=== PATIENT | male | born 1970 | race Caucasian/White ===

== ENCOUNTER 2024-05-03 14:01 | Inpatient (IN) | payer OTHER, SELFPAY ==
[2024-05-03] VITALS (49 sets, daily range): BP systolic 110–202; BP diastolic 60–123; PULSE 75–80; BMI 40.9
--- NOTE | 2024-05-03 12:37 | ED.CVA ---
History of Present Illness
General
Chief Complaint: CVA/TIA Symptoms
Source: patient
Time Seen by Provider: 05/03/24 12:34
Onset of Stroke Symptoms
Onset of symptoms known: Yes
Date of onset of symptoms: 05/03/24
History of Present Illness
History of Present Illness:
This patient is a 54-year-old male who went to bed last night feeling his usual self. He awoke but stayed in bed at 6 AM and felt perfectly well. He then awoke at 10 AM, and noted that his left side felt 'funny'. He got up out of bed and noted
weakness on his left side. Medics were called. Patient noted to have a left facial droop associated with left-sided weakness. He is also hypertensive. Patient has a history of hypertension and A-fib, and is on a DOAC. He was traveling and
states that he forgot his medications and therefore missed a dose of his DOAC both yesterday and today. He denies numbness, chest pain, shortness of breath, severe headache, visual changes, neck pain, or other complaints.
Past History
Past History
ED Past Medical History: Arrthythmia (Paroxysmal atrial fibrillation), HTN and Other (Sleep apnea)
ED Past Surgical History: Orthopedic (Reconstructive surgery due to trauma to his right lower extremity)
Social History
Tobacco: Smoker
Alcohol: Daily
Drug: None
Personal:
Living: with family
Family History
Family History: Hypertension
Phy Exam
Physical Exam
Physical Exam:
GENERAL: Alert , in no apparent distress
EYE: pupils equal and reactive, no photophobia
NECK: Supple, no significant adenopathy.
ENT: o/p clr, mmm.
CARDIAC: Regular rate and rhythm .
LUNGS: Clear breath sounds bilaterally, no acute respiratory distress, no wheezes/rales/rhonchi
ABDOMEN: Soft, without focal tenderness, no r/g, no cvat
NEUROLOGICAL: Alert and oriented, speech slurred, left facial droop, left upper and lower extremity weakness, see NIH score
SKIN: Warm and dry, skin intact.
MUSCULOSKELETAL: No edema, well perfused.
PSYCH: Normal and appropriate interaction.
Scores
NIH Stroke Score
Level of Consciousness: 0 - Alert
LOC Questions: 0-Answers both correctly
LOC Commands: 0-Performs both correctly
Best Horizontal Gaze: 0-Normal
Visual Browne: 0=Normal, no visual loss
Facial Palsy: 2=Partial paralysis
Motor - Right Arm: 0=No drift 10 seconds
Motor - Left Arm: 2=Partial vs. gravity
Motor - Right Le-No drift 5 seconds
Motor - Left Le-Drift < 5 seconds
Limb Ataxia: 0-Absent
Sensation: 0-Normal
Best Language: 0-No aphasia
Dysarthria: 2-Severe slurring
Extinction and Inattention: 0-No abnormality
Total Score:: 7
Course
Orders/Labs/Results
Orders:
Orders
05/03/24 12:31
CT Head W/o Cont STROKE ALERT Urgent
Comment:
Reason For Exam: stroke symptoms
05/03/24 12:32
Electrocardiogram (*1) Urgent
Reason for Study: Other
Other Reason for Exam: Possible Stroke
Bedside Glucose- Treatment ONCE
Cardiac Monitoring- Treatment ONCE
EKG- Treatment ONCE
IV Insert/Care/Rem.- Treatment PRN
Vital Signs As Directed
Frequency: Other
Weight As Directed
Frequency: Once
Comment: ZERO STRETCHER SCALE FOR ACCURATE WEIGHT
O2 Therapy [RESP] Urgent
Titrate/Wean O2 to maintain O2 sat greater than (%): 93
Special Instructions: MAINTAIN CONTINUOUS O2 SATS > OR = 93%
05/03/24 12:33
Complete Blood Count/With Diff Urgent
Comprehensive Metabolic Panel Urgent
PTT Urgent
Prothrombin Time Urgent
Troponin I Urgent
05/03/24 12:46
Labetalol HCl [Trandate] 10 mg IV NOW STA
05/03/24 12:51
CT Head & Neck Angio W/wo IV Routine
Comment:
Reason For Exam: stenosis
05/03/24 12:52
Add On- LAB Routine
Tests Added?: folate, ferritin, TSH reflex, B12, lipid panel, hbA1c
Prothrombin Complex(Pcc),Human [Kcentra] 2,580 unit Empty Viaflex Container 100 ml [Viaflex Empty Container] 100 ml IV NOW
Does patient have a dx of serious acute active bleeding?: Yes
Does patient have prior history of HIT?: No
Urgent surgery/invasive procedure planned in next 6 hours?: No
05/03/24 12:53
Nicardipine 40 mg/200 ml [Cardene] 40 mg in 200 ml IV NOW
Initial dose in mg/hr, then titrate:: 5
Titrate to keep:: Other
Titrate to keep other:: sbp 100-140
Titrate by mg/hr:: 2.5 mg/hr
Frequency of titrations (minutes):: 5-15 minutes
Maximum dose in mg/hr:: 15
Begin to taper infusion when:: Remained at goal for 2hrs
Taper by mg/hr:: 2.5 mg/hr
Frequency of taper (minutes) if patient maintains goal:: 15-30 minutes
Taper to off?: Yes
If infusion off & no longer maintaining goal:: Contact Provider
Elevate HOB [Head of Bed-Restrictions] As Directed
Elevation Level: 30 degress
Keep head of bed flat: No
Comment: elevate HOB >30 degrees at all times
05/03/24 12:54
Add On- LAB Routine
Comments:: Please add to today's labs or draw as routine
Tests Added?: ESR, EtOH, UDS
05/03/24 13:04
NIH Stroke Scale As Directed
Directions: Per protocol
Comment: Please until order to stop
Swallow Screening CVA/TIA ONLY As Directed
If patient FAILS swallow screening:: NPO
If patient PASSES swallow screening, diet:: Cholesterol Lowering
05/03/24 13:37
NEUROLOGY CONSULT Routine
Consulting Provider: David Evangelista
Was physician already notified: Yes
Neurosurgery Consult Routine
Consulting Provider: Forrest Canchola
Was physician already notified: Yes
Urine Drug Abuse Screen Routine
05/03/24 13:39
[place] Setter Consult Routine
Consulting Provider: Dominik Man
Was physician already notified: Yes
05/03/24 13:41
Admit/Transfer Patient As Directed
Co-Sign Provider:
Level of Care: Inpatient admission
Assign to:: ICU
Physician / Group: Lilly
Diagnosis: ICH, Hypertensive Emergency
Reason for Hospitalization: ICH, Cardene drip
Expected length of stay greater than two midnights?: Yes
ELOS- Estimated Length of Stay in days: 3
I certify the patient meets the requirements for IP care: Yes
05/03/24 13:43
PRN Pain Medication Management As Directed
May give lesser potent ordered pain med per pt: Yes
preference::
Protocol:: Medication orders for pain may be administered in a
manner that supports deferring to patient preference
when the pt is:
- Requesting an ordered lesser potent pain medication.
Least to most potent pain medications are defined
as: acetaminophen < NSAID < tramadol < opioids
(morphine, oxycodone, hydromorphone).
- Requesting a lesser dose of the same medication IF
ORDERED.
- Requesting a less intrusive route of administration
if both routes are prescribed by the provider (PO <
IV).
05/03/24 13:45
Code Status As Directed
Resuscitation Status: Full Code
Abnormal Lab Results
05/03/24 05/03/24
12:33 12:43
Absolute Monos (auto) 0.7 H 10^3/uL
(0.1-0.6)
Lymphocytes % 19.9 L %
(20.5-51.1)
Glucose 110 H mg/dl
(70-99)
Troponin I 0.042 H* ng/ml
POC Glucose 113 H mg/dl
(70-99)
05/03/24 12:33
05/03/24 12:33
Vital Signs
Initial and Last Documented VS:
Initial Vital Signs
Temp Pulse Resp BP Pulse Ox
98.3 F 79 20 197/108 95
05/03/24 12:38 05/03/24 12:38 05/03/24 12:38 05/03/24 12:38 05/03/24 12:38
Last Documented Vital Signs
Temp Pulse Resp BP Pulse Ox
98.3 F 76 25 194/114 96
05/03/24 12:38 05/03/24 13:30 05/03/24 13:30 05/03/24 13:30 05/03/24 13:30
Update Note
Update Note:
Patient presents to the Emergency Department with ____left facial droop _and weakness
Number and Complexity of Problems Addressed at the Encounter
� Chronic conditions affecting care:
� Acute Exacerbation and/or Progression of Chronic Illness:
� Differential Diagnosis includes: But not limited to intracerebral hemorrhage, subdural, ischemic stroke, etc. etc.
Amount and/or Complexity of Data to be Reviewed and Analyzed
� I performed an independent evaluation of and my interpretation is:
EKG: Read by me, normal sinus rhythm, normal rate, normal axis, no acute ischemia
CT: Preliminary read verbally Dr. Reagan, radiology, intracerebral hemorrhage, parenchymal, 4.5 cm located on the right posterior basal ganglia/thalamus side with slight edema.
Xrays:
Laboratory Studies:
Other:
� Review of other/old records reveals: Discharge summary from August 2023 reviewed, patient has a history of diabetes, LVH, A-fib, etc.
� Clinical information was obtained by an independent historian:
� Prescriptions/Medications Considered but not given:
� Further testing considered but not performed:
Risk of Complications and/or Morbidity or Mortality of Patient Management
� Social determinants of health affecting care:
� Discussion with other providers (PCP, Hospitalists, Consultants, etc): Patient was met by myself and neurology Dr. Cooley at bedside upon his presentation via EMS. Upon recognizing bleed, patient is no longer obviously a
consideration for IAT or TNK. Given the half-life of his DOAC, he is a candidate for reversal with Kcentra which has been ordered by me. Emphasis on close blood pressure management, labetalol x 1 given while preparing Cardene drip. Case was
discussed with neurosurgery, Dr. Luis Monreal, who agrees with manage, describes patient is case is nonsurgical, and all are in agreement that management susceptible here at . Case discussed with hospitalist Dr. Vogt via [employer] text. ICU aware.
� Escalation of care including admission/observation vs risk of discharge considered:
ED Attending Note
-
Portions of this chart may have been created with voice recognition software.� Occasional wrong word or��sound alike� substitutions may have occurred due to the inherent limitations of voice recognition software.
Discharge Plan
Departure
Patient Disposition: Admit
Date of Disposition: 05/03/24
Time of Disposition: 12:48
Admit to: ICU
Admit to doctor: Lilly
Presentation/result/management discussed w/ accepting MD/DO: Hospitalist
Patient with high blood pressure during this ER visit?: Yes
Condition: Critical
Prescriptions:
No Action
furosemide 80 MG tablet
80 mg PO DAILY
Eliquis 5 MG tablet
5 mg PO BID Qty: 60 11RF
diltiazem HCl 360 mg Capsule,Extended Release 24 Hr
360 mg PO DAILY
valsartan 160 mg Tablet
160 mg PO DAILY
Interventions
Interventions:
*Risk Screen - Suicide Last Done: 05/03/24 12:38
*General Assessment Last Done: 05/03/24 12:38
*Neglect/Abuse Screening Last Done: 05/03/24 12:38
ED- Fall Risk Assessment Last Done: 05/03/24 13:02
ED- Pulmonary Assessment Last Done: 05/03/24 13:02
ED- Neurological Assessment Last Done: 05/03/24 13:02
ED- Cardiac Assessment Last Done: 05/03/24 13:02
ED Swallowing Screen Last Done: 05/03/24 13:02
Discharge Date and Time
Print Language: [place]THER[place] IRISH
[2024-05-03 12:44] LABS: Glucose - Point of Care 113 mg/dl (70-99)
[2024-05-03] MEDS: TRANDATE 10 MG IV (12:46)
[2024-05-03] MEDS: CARDENE 200 IV ×5 (12:55→23:22)
[2024-05-03 13:05] LABS: % Basophils 0.7 % (0-2); % Eosinophils 4.7 % (0-6); % Immature Granulocytes 0.3 % (0-0.5); % Lymphocytes 19.9 % (20.5-51.1); % Monocytes 6.9 % (1.7-9.3); % Neutrophils 67.5 % (42.2-75.2); Absolute Basophils 0.1 10^3/uL (0-0.2); Absolute Eosinophils 0.5 10^3/uL (0-0.7); Absolute Lymphocytes 1.9 10^3/uL (1.2-3.4); Absolute Monocytes 0.7 10^3/uL (0.1-0.6); Absolute Neutrophils 6.5 10^3/uL (1.4-6.5); Hematocrit 46.2 % (39.0-52.0); Hemoglobin 15.7 g/dL (13.0-18.0); Mean Corpuscular Hgb 30.4 pg (27.0-31.0); Mean Corpuscular Volume 89.4 fL (80.0-94.0); Mean Platelet Volume 10.1 fL (7.4-10.4); Nucleated Red Blood Cells % 0 % (-); Platelet Count 265 10^3/uL (130-400); Red Blood Cell Count 5.17 10^6/uL (4.70-6.10); Red Cell Dist. Width 13.4 % (11.5-14.5); White Blood Cell Count 9.7 10^3/uL (4.8-10.8)
[2024-05-03] MEDS: KCENTRA 100 UNIT IV (13:08)
[2024-05-03 13:10] LABS: APTT 28.7 Sec (23.4-35.0)
--- NOTE | 2024-05-03 13:11 | CON.NEURO4 ---
Addendum entered and electronically signed by David Evangelista MD 05/03/24 15:23:
Studies reviewed.
I have personally examined the patient. I reviewed and agree with the BUSINESS APPLICATIONS DEVELOPER's Note.
My addenda:
Awake, interactive. Closes eyes after approximately 10 seconds. No acute distress.
Speech intact.
Follows 2-step requests w/o difficulty. No tremor.
Extra-ocular movements grossly intact.
Facial movements full and symmetric. Hearing intact to normal conversational volume.
Drift in left upper extremity and minimally left lower extremity. Movements on the right side were normal.
Neck: full ROM.
Chest: no dyspnea
Heart: no JVD
Ext: (-) Clubbing, (-) Cyanosis, (-) Edema
IMPRESSIONS/RECOMMENDATIONS:
Abrupt onset of left arm and leg weakness with questionable decline in mental status and CT of head finding of right putaminal hemorrhage as well as accelerated hypertension as the patient admits to having missed medication dosing 1 day ago
Consult neurosurgery, completed
Repeated CT of head 6 hours from original study to determine if there is expansion of the demonstrated right putaminal hemorrhage
Blood pressure control with goal of systolic blood pressure between 140 and 160
Consider treatment for likely obstructive sleep apnea, suggested by the patient's self statement of excessive daytime sleepiness at baseline and morbid obesity
Hold the patient's apixaban at this time and reevaluate after approximately 24 hours
Total Critical Care Time= 40 minutes.
The neurological system is affected and the action required by me to prevent further deterioration or potential was control over the item listed first in the Impressions and Recommendations section of this note.
I was present and personally examined the patient. I discussed patient care with other professional health care providers.
D/W patient
Will continue to follow patient.
Original Note:
Documented by User: Joselin العراقي NP 05/03/24 14:05
Consultation - Neurology 4
-
CONSULTING PHYSICIAN: David Evangelista MD
REFERRING PHYSICIAN: ER/Dr. Henderson
DICTATED BY: MYNOR Jerome
DATE/TIME OF REQUEST: 05/03/24
DATE/TIME OF CONSULTATION: 05/03/24
Reason for Consultation: Stroke Alert
History of Present Illness:
This is a 54-year-old right-handed male who has presented to the hospital with report of left-sided heaviness/sensation change, left facial droop, and dysarthria. Patient reports that went to bed last evening feeling at his baseline. He woke up
during his sleep at 0400 and 0600 and reports turning over in bed and not feeling abnormal. Around 1000 he went to get out of bed and upon standing noted that his left leg and arm felt heavy and had a tingling sensation. He called 911 and on arrival
EMS noted that he had a left facial droop and his speech was dysarthric. Blood pressure per EMS was 234/139. CT head was obtained on arrival and demonstrates a right posterior basal ganglia and thalamic parenchymal hemorrhage associated with a small
amount of vasogenic edema. NIHSS on arrival is 5 for mild left facial droop, LUE and LLE drift, mild sensation loss, and mild dysarthria. He is not a candidate for TNK/IAT due to hemorrhage. He denies any headache, dizziness, vision changes,
speech/swallow difficulty, nausea, chest pain, palpitations, and shortness of breath. He reports missing all of his medications yesterday including his Eliquis due to [place] and forgetting to bring them with him, and he has not taken any
of his morning medications yet today. He denies any recent fevers or illness. He denies any history of TIA, stroke, or events like this in the past.
Past Medical History: Afib (Eliquis), HTN, HARLAN (cpap), fatty liver, elevated LFTs, hypertriglyceridemia, LVH hypertrophy
Surgical History: RLE reconstruction due to trauma, RLE muscle flap repair, ORIF L foot, cardioversion
Family History: Reviewed and noncontributory.
Social History: Current smoker. Daily alcohol. Denies illicit drug use.
Allergies: Lisinopril.
Home Medications: See below.
Review of Symptoms:
Patient denies any fever, headache, chest pain, shortness of breath, GI or symptoms.
�Per the HPI.�All systems are reviewed negative except above.
Physical Exam:
The patient is afebrile, abdomen is nondistended, breathing is unlabored, skin is warm and dry, no edema.
NIH Stroke Scale:
I performed the NIH stroke scale on the patient on 05/03/24 at 1230. The patient scored 5 points on the NIH stroke scale assessment, which were assigned as follows: See below.
Neurologic Examination:
The patient is drowsy. Opens eyes to voice. He is oriented x 3. He is able to follow commands and answer questions appropriately. There is no aphasia or dysarthria. On cranial nerve assessment, pupils are 3 mm bilateral, round and reactive to light
and accommodation. Visual browne are full. Extraocular movements are intact. There is a left facial droop. Hearing is intact bilaterally to normal conversation volume. Tongue palate and uvula are midline. Motor strengths are 5/5 right upper and
lower extremities, 5-/5 left upper and lower extremities on medical research [place] scale. There is drift in the LUE and LLE. No involuntary movement noted. Deep tendon reflexes are absent bilateral upper and lower extremities and Babinski is
absent bilaterally. There was no extinction noted on double simultaneous stimulation. Coordination is intact by finger to nose bilaterally.
Lab Results: See below.
Neuro Imaging:
1. CT Head 05/03/24: Focus of rounded parenchymal hemorrhage, centered within the right posterior basal ganglia and thalamus, measuring 1.5 cm in diameter, with a small amount of adjacent vasogenic edema. Most likely etiology hypertensive hemorrhage.
2. CTA head/neck 05/03/24: pending.
Differentials for the patient's presentation include:
1. Acute right posterior basal ganglia and thalamic intraparenchymal hemorrhage with a small amount of vasogenic edema; etiology likely hypertensive hemorrhage.
2. Malignant hypertension in the setting of medication noncompliance.
Patient has the following risk factors for their symptoms: Medication noncompliance, HTN, Eliquis, smoker.
IV Tenecteplase/IAT candidacy: He is not a candidate for TNK/IAT due to hemorrhage.
Recommendations:
-Provide Eliquis reversal agent prothrombin complex x1 now.
-Hold Eliquis and any blood-thinning medications.
-Strict blood pressure control, SBP goal <140, confirmed with Neurosurgery.
-Monitor on telemetry in the ICU for strict blood pressure control.
-CTA head/neck pending.
-Repeat CT head in 6 hours, around 1830 tonight for stability check.
-Per Neurosurgery, okay to monitor patient at , will need to transfer patient urgently if there is a change in mental status.
-NIHSS and neurological checks per unit guidelines.
-Provide patient with stroke education packet.
-LDL goal <70. LDL is pending. Will determine high dose statin therapy based on results.
-Goal normoglycemia, hbA1c is pending.
-DVT prophylaxis with SCDs only.
-PT/OT/ST evaluations.
Discussed patient care with: Dr. Evangelista, Dr. Henderson, the patient
Vital Signs and Labs
-
Vital Signs and Labs:
Vital Signs
Temp Pulse Resp BP Pulse Ox
98.3 F 73 24 196/109 93
05/03/24 12:38 05/03/24 13:00 05/03/24 13:00 05/03/24 12:50 05/03/24 13:00
Lab Results
05/03/24 12:33
PT 13.0 Sec (11.4-14.6) 05/03/24 12:33
INR 1.00 05/03/24 12:33
APTT 28.7 Sec (23.4-35.0) 05/03/24 12:33
Medications
-
Home Medications
�Medication �Instructions �Recorded
furosemide 80 mg tablet 80 mg PO DAILY 11/17/18
apixaban 5 mg tablet (Eliquis) 5 mg PO BID ##60 11/19/18
diltiazem HCl 360 mg capsule,24 360 mg PO DAILY 07/30/23
hr,extended release
valsartan 160 mg tablet 160 mg PO DAILY 05/03/24
NIH Stroke Score
Subsequent NIH Scale
Date of Subsequent NIH Scale: 05/03/24
Time of Subsequent NIH Scale: 12:30
NIH Stroke Score
Level of Consciousness: 0 - Alert
LOC Questions: 0-Answers both correctly
LOC Commands: 0-Performs both correctly
Best Horizontal Gaze: 0-Normal
Visual Browne: 0=Normal, no visual loss
Facial Palsy: 1=Minor paralysis
Motor - Right Arm: 0=No drift 10 seconds
Motor - Left Arm: 1=Drift < 10 seconds
Motor - Right Le-No drift 5 seconds
Motor - Left Le-Drift < 5 seconds
Limb Ataxia: 0-Absent
Sensation: 1-Mild loss
Best Language: 0-No aphasia
Dysarthria: 1-Mild slurring
Extinction and Inattention: 0-No abnormality
Total Score:: 5

Documented by User: David Evangelista MD 05/03/24 15:11
NIH Stroke Score
NIH Stroke Score
Total Score:: 5
[2024-05-03 13:31] LABS: Troponin I 0.042 ng/ml
--- NOTE | 2024-05-03 13:49 | HPS.HSE ---
Addendum entered and electronically signed by Marquis Carr MD 05/03/24 14:16:
Elevated troponin likely in the setting of hypertension emergency
Check echo in the morning
Trend troponin
Addendum entered and electronically signed by Marquis Carr MD 05/03/24 14:14:
I saw and examined the patient.
The HARP MAKER's note was reviewed and I agree with the note.
Comment:
54-year-old male past medical history of primary hypertension, atrial fibrillation, chronic coagulopathy with Eliquis, tobacco abuse daily basis, alcohol abuse, morbid obesity to excess calories, HARLAN on CPAP, history of some noncompliance was
presented from home with left-sided weakness of his face arm and leg. Patient last took Eliquis yesterday morning. Denies any vision problems. Denies any neck pain. Denies any headache. Currently states he is tired. In the ER CT head with
intracerebral hemorrhage and case was discussed with neurosurgery recommended patient to be monitored over here.
General: Comfortable and Conversant (Noted slurred speech)
HEENT: Anicteric and Moist mucous membranes
Respiratory: Clear and Non Labored Respirations
Cardiac: S1/S2 and Regular Rhythm
GI: Soft and Non Tender
Musculoskeletal: No Clubbing, No Cyanosis and No Edema
Skin: Warm and Dry
Neuro: Awake, Alert, Slurred Speech (Due to left facial weakness), Facial Droop (Left) and Other (Left upper extremity drift)
Psych: Calm
Impression
Intraparenchymal hemorrhage likely multifactorial with uncontrolled hypertension, tobacco abuse, alcohol abuse, chronic coagulopathy with Eliquis
Primary hypertension with emergencies
Atrial fibrillation
Tobacco abuse
Alcohol abuse
Impaired fasting glucose
Morbid obesity excess calories
HARLAN on CPAP
Plan
CT angiogram of head and neck is pending
Repeat CT head in 6 hours and with any change in mentation.
Eliquis has been on hold
Status post Kcentra in the ER
Uncontrolled blood pressure and started on nicardipine infusion.
Check lipid panel and A1c
Check UDS
Head of bed 30 degrees.
Speech evaluation
Start gentle IV fluids
PT and OT tomorrow
Monitor for any seizure-like activity.
Neurochecks
Neurology and neurosurgery has been consulted
Admitting to the ICU computing machine operator consulted
DVT prophylaxis SCDs only for now
Total Critical Care Time_45_ minutes. I was immediately available to the patient and staff. I personally examined, reviewed labs, diagnostic images/reports, interpretations, treatment plans, discussed patient care with other providers and family
or caregivers (if patient is unable to make decisions), entered orders as appropriate and documented the medical record.
Original Note:
Family Physician
-
Family Physician: NO INTERVIEW UNKNOWN
Chief Complaint
-
Left sided weakness
History of Present Illness
Pt is a 54 yo M with PMH HTN, atrial fibrillation, HARLAN on CPAP, HLD, and DM presents with L-sided weaknesses. Pt states he woke up at 10 AM with L-sided weakness affecting his face, arm, and leg. He presumed condition would resolve on its own and
went back to sleep. He woke up at noon and decided to call EMS. Last known well approximately 6 AM. Pt states he missed doses of Eliquis last night and this morning. Pt denies vision changes, tinnitus, chest pain, palpitations, SOB, abdominal pain,
headache, dizziness, and N/V/D.
Medical History
Past Medical History
Past Medical History: Reports Other
Additional Past Medical History:
Paroxysmal Atrial Fibrillation
Chronic HFpEF
Essential Hypertension
Hyperlipidemia
Diabetes Mellitus, Type II
Obstructive Sleep Apnea
Morbid Obesity
Past Surgical History: Reports Other
Additional Past Surgical History:
Left Foot ORIF
Right Lower Ext Skin Graft
Social History
Tobacco: Smoker (Currently smokes cigars daily. He is a former one pack per day cigarette smoker who quit cigarettes in 1993.)
Alcohol: Occasional (Four times a week)
Living: Alone (in a 2 story home. )
Family History
Family History: Not pertinent
Allergies / Home Medications
Allergies reflects when Allergies were last updated in [facility].
Home Medications with original date entered in [facility]
Allergy/Medication List:
Allergies
Allergy/AdvReac Type Severity Reaction Status Date / Time
lisinopril [Lisinopril] Allergy Intermediate 'my heart Verified 05/03/24 12:30
went crazy'
Home Medications
furosemide 80 mg tablet 80 mg PO DAILY 11/17/18
apixaban 5 mg tablet (Eliquis) 5 mg PO BID ##60 11/19/18
diltiazem HCl 360 mg capsule,24 hr,extended release 360 mg PO DAILY 07/30/23
valsartan 160 mg tablet 160 mg PO DAILY 05/03/24
Review of Systems
-
A 12 point ROS was completed and negative except as noted: Yes
Constitutional: Denies Fever or Chills
Respiratory: Denies Cough or Trouble Breathing
Cardiac: Denies Chest Pain or Palpitations
Abdomen/GI: Denies Abdominal Pain, Nausea, Vomiting or Diarrhea
Neurological: Reports See HPI
Physical Exam
Vital Signs
Vital Signs
Temp Pulse Resp BP Pulse Ox
98.3 F 76 25 194/114 96
05/03/24 12:38 05/03/24 13:30 05/03/24 13:30 05/03/24 13:30 05/03/24 13:30
Physical Exam
General: Comfortable and Conversant (Noted slurred speech)
HEENT: Anicteric and Moist mucous membranes
Respiratory: Clear and Non Labored Respirations
Cardiac: S1/S2 and Regular Rhythm
GI: Soft and Non Tender
Rectal: Deferred by Provider
Musculoskeletal: No Clubbing, No Cyanosis and No Edema
Skin: Warm and Dry
Neuro: Awake, Alert, Slurred Speech (Due to left facial weakness), Facial Droop (Left) and Other (Left upper extremity drift)
Psych: Calm
Laboratory Results
-
05/03/24 12:33
Laboratory Results
PT 13.0 Sec (11.4-14.6) 05/03/24 12:33
INR 1.00 05/03/24 12:33
APTT 28.7 Sec (23.4-35.0) 05/03/24 12:33
Troponin I 0.042 ng/ml H* 05/03/24 12:33
Data Reviewed
-
CT Scan: Report Reviewed by me
Lab Data: Labs Reviewed by me
Impression/Plan
-
Intracranial Hemorrhage
-Patient received K-Centra in ED
-Admit to ICU
-Consult Neurology and Neurosurgery
-Monitor Neuro-checks
-Hold antiplatelets and anticoagulants
Hypertensive Emergency
-Continue Cardene Drip - Goal SBP 100-140
Elevated Troponin, likely related to hypertensive emergency
-Continue to trend troponin to peak
Paroxysmal Atrial Fibrillation
-Hold Eliquis in setting of intracranial hemorrhage
Chronic HFpEF
-Monitor Is&Os and Daily Weights
Hyperlipidemia
-Check fasting lipid panel
Diabetes Mellitus, Type II
-HgbA1c in Jul 2023 was 8.0
-Recheck HgbA1c
-Monitor sugars and continue coverage insulin
Obstructive Sleep Apnea
-Continue CPAP at 10
Morbid Obesity due to Excess Calories
-Affects all aspects of care
DVT Proph: SCDs
Code Status:Full Code
[2024-05-03 13:50] LABS: ALT (SGPT) 21 U/L (0-50); AST (SGOT) 28 U/L (17-59); Albumin 4.4 g/dl (3.5-5.0); Alkaline Phosphatase 102 U/L (38-126); Blood Urea Nitrogen 15 mg/dl (9-20); Calcium 9.8 mg/dl (8.4-10.2); Carbon Dioxide 30 mmol/L (22-30); Chloride 105 mmol/L (98-107); Glucose 110 mg/dl (70-99); Potassium 3.7 mmol/L (3.5-5.1); Sodium 143 mmol/L (135-145); Total Bilirubin 0.7 mg/dl (0.2-1.3); Total Protein 6.9 g/dl (6.3-8.2); eGFR > 60.00
--- NOTE | 2024-05-03 14:14 | W.PN.UPDATE ---
Update Note
Progress Note Update
For billing purposes only
[2024-05-03 14:26] LABS: HDL Cholesterol 73 mg/dl; LDL Cholesterol, Calculated 111 mg/dl; Total Cholesterol 213 mg/dl (50-199); Triglyceride 145 mg/dl (10-149); Very Low Density Lipoprotein 29 mg/dl (0-30)
[2024-05-03 14:53] LABS: Erythrocyte Sed Rate 14 mm/hour (0-20)
[2024-05-03 15:01] LABS: Alcohol None Detected
[2024-05-03 15:31] LABS: TSH Reflex To Free T4 0.59 uIU/ml (0.47-4.68)
--- NOTE | 2024-05-03 15:40 | W.PN.INTV ---
Today's Communication / Plan
Recommendations
-
Assessment
-
Assessment: Patient is a 54-year-old male who went to bed last night as he usually does but when he woke up at 10 AM he noticed that his left side was feeling 'funny'. Patient has a past medical history of atrial fibrillation hypertension and is on
a DOAC. When he got out of bed he noticed weakness on his left side and subsequently called paramedics. Patient was noted to have a left-sided facial droop associated with left-sided weakness. He was also hypertensive on presentation. He was
traveling and stated that he forgot his medications and therefore missed a dose of his DOAC both yesterday and today. CT conducted on 05/03/2024 showed rounded parenchymal hemorrhage, centered within the right posterior basal ganglia and thalamus
measuring 1.5 cm in diameter indicating a likely etiology of hypertensive hemorrhage. Patient received K-centra in the emergency department. Patient subsequently admitted to ICU for right-sided parenchymal hemorrhage and left-sided weakness.
Chronic Conditions: Uncontrolled hypertension, atrial fibrillation, hyperlipidemia, type 2 diabetes, obstructive sleep apnea, morbid obesity
Impression:
#Intracranial hemorrhage
#Hypertensive emergency
#Paroxysmal atrial fibrillation
#Hyperlipidemia
#Type 2 diabetes
#Obstructive sleep apnea on CPAP
#Chronic HFpEF
Plan:
-Supplemental oxygen as needed
-Aspiration precautions
-Chest x-ray ordered
-Echocardiogram ordered
-Neuro and vascular checks as per protocol
-CT angiogram of head and neck ordered
-Repeat CT head within 24 hours
-PT OT evaluation and treat
-Neurology and neurosurgery has been consulted
-Speech eval
-Monitor blood pressure
-proBNP ordered
-Troponins at 0.042 on 05/03 continue to trend
-Goal BP <160
-Cardene drip at 40mg in 200mls
-CPAP at [id number] (his home settings) resumed
-Follow hemoglobin - 15.7 on 05/03
-Follow blood sugars- 110 on 05/03
-Insulin on low sliding scale
-DVT prophylaxis- SCDs
-NPO except for medications
Subjective Dataa
Subjective Data
Date of Service:
Date of Service: May 03, 2024
Patient complains of left-sided weakness
Review of Systems
Neuro: Weakness (L Sided weakness. Face and limbs.)
Objective Data
Data Reviewed
Vital Signs / I&O / Oxygen:
Vital Signs
Temp Pulse Resp BP Pulse Ox
98.3 F 83 23 186/93 93
05/03/24 12:38 05/03/24 15:16 05/03/24 15:16 05/03/24 15:16 05/03/24 15:16
SaO2 93
Nasal Cannula flow liters per 3
minute
Physical Exam
General: Comfortable
HEENT: Normocephalic and Anicteric
Cardiovascular: Regular Rhythm
Respiratory: Clear
GI: Soft
Neurology: Awake, Alert and Oriented
Labs/Micro/Reports
Lab Data
05/03/24 12:33
05/03/24 12:33
Laboratory Results
05/03/24 05/03/24
12:33 14:57
PT 13.0 Cancelled
INR 1.00 Cancelled
APTT 28.7 Cancelled
[2024-05-03] MEDS: CARDIZEM CD 360 MG PO (15:45)
[2024-05-03] MEDS: DIOVAN 160 MG PO (15:46)
[2024-05-03] MEDS: LASIX 80 MG PO (15:46)
[2024-05-03 16:21] LABS: Amphetamines Positive (Negative); Barbiturates Negative (Negative); Benzodiazepines Negative (Negative); Buprenorphine Negative (Negative); Cocaine Negative (Negative); Marijuana Negative (Negative); Methadone Negative (Negative); Methamphetamines Positive (Negative); Opiates Negative (Negative); Phencyclidine Negative (Negative); Tricyclic Antidepressants Negative (Negative)
--- NOTE | 2024-05-03 16:22 | PTCARENOTE ---
Addendum entered by Brittaney Huff RN 05/03/24 16:47:
care management specialist, hospitalist updated with vital sig trends and resulted tox screen.
Original Note:
patient received from ED@1510, assessments per work list. patient drowsy but arousable, handoff neuro check and NIH completed. Cardene@max dose, received with K centra infusing. remains hypertensive, reviewed with Utility Technician, ICU pharmacist, orders
received. pass swallow evaluation, oral medications administered. placed on Cpap, lungs clear. cxr taken. light red rash noted bilateral buttocks, groin. bruise noted left abdomen which is obese and soft. voided large amount justo urine in urinal.
specimen sent. family at bedside. updated with visitation policy and plan of care. call kelly in reach
[2024-05-03 16:41] LABS: Fentanyl, Urine Negative (Negative)
--- NOTE | 2024-05-03 17:15 | CON.NS ---
Chief Complaint
-
ICH
History of Present Illness
This is a 55-year-old male admitted with left-sided weakness. As well as hypertensive emergency with CT head showing right thalamic ICH and initial presenting blood pressure with a systolic in the 200s. He has been placed on Cardene for blood
pressure control. He does take Eliquis for atrial fibrillation. This has been placed on hold. He currently has no complaints other than left-sided weakness. He is using a CPAP as he is sleeping. He does awake easily however does closes eyes but
continues to follow commands.
Review of Systems
-
10 point review of systems is negative except stated
Medication and Allergies
Home Medications
Home Medications
�Medication �Instructions �Recorded
furosemide 80 mg tablet 80 mg PO DAILY Fluid 11/17/18
Retention/Swelling
diltiazem HCl 360 mg capsule,24 360 mg PO DAILY Arrhythmia 07/30/23
hr,extended release
apixaban 5 mg tablet (Eliquis) 5 mg PO BID Blood Clot 05/03/24
Prevention/Tx
valsartan 160 mg tablet 160 mg PO DAILY Blood Pressure 05/03/24
Allergies
Allergies
Allergy/AdvReac Type Severity Reaction Status Date / Time
lisinopril [Lisinopril] AdvReac Intermediate 'my heart Verified 05/03/24 14:16
went crazy'
Physical Exam
-
Exam:
Full strength on the right
3 out of 5 strength in left upper extremity 4-5 strength left lower extremity
Unable to check face symmetry as patient is wearing CPAP mask
Sensation appears intact
Pupils are equal react
CT head shows 1.5 cm right basal ganglionic hemorrhage
Assessment / Plan
-
Intracranial hemorrhage secondary to hypertensive emergency and anticoagulant use
1. Hold Eliquis
2. Control systolic blood pressure with goal 100-140
3. Every hour neurochecks
4. Repeat head CT at 9 PM tonight
5. If CT head stable patient will be cleared for subcutaneous DVT prophylaxis starting tomorrow
6. No acute neurosurgical intervention necessary if there is any change in his neurologic status notify neurosurgery
7. Will follow
[2024-05-03 18:02] LABS: Glucose - Point of Care 138 mg/dl (70-99)
[2024-05-03 18:06] LABS: Vitamin B12 429 pg/ml (239-931)
--- NOTE | 2024-05-03 18:10 | PTCARENOTE ---
neurosurgery in, no new orders. for repeat CT scan@2100. patient remains drowsy, arouses easily. remains on cpap. labs sent. Cardene adjustment per work list. neuro assessments unchanged. remains weak left arm and leg. oriented conversation. pupils
equal and reactive
[2024-05-03 19:20] LABS: NT-proBNP 166 pg/ml
[2024-05-03] MEDS: DESENEX/MITRAZOL/ZEASORB 1 APPLIC TOPICAL (19:45)
--- NOTE | 2024-05-03 21:34 | PTCARENOTE ---
received patient from previous shift. NIH 4 done with dayshift nurse. left arm improvement. ataxia still in the left and right arm. PT downstairs for 9PM ct scan with respiratory. Cardene infusing.
[2024-05-03 23:36] LABS: Glucose - Point of Care 142 mg/dl (70-99)
[2024-05-04] VITALS (58 sets, daily range): BP systolic 99–179; BP diastolic 54–96; PULSE 67–73; O2SAT 95–97; BMI 41.6
[2024-05-04] MEDS: CARDENE 200 IV ×5 (02:04→23:56)
[2024-05-04 04:22] LABS: Hematocrit 42.3 % (39.0-52.0); Hemoglobin 14.6 g/dL (13.0-18.0); Mean Corp Hgb Conc. 34.5 g/dL (33.0-37.0); Mean Corpuscular Hgb 30.8 pg (27.0-31.0); Mean Corpuscular Volume 89.2 fL (80.0-94.0); Mean Platelet Volume 10.2 fL (7.4-10.4); Platelet Count 269 10^3/uL (130-400); Red Blood Cell Count 4.74 10^6/uL (4.70-6.10); Red Cell Dist. Width 13.1 % (11.5-14.5); White Blood Cell Count 13.5 10^3/uL (4.8-10.8)
[2024-05-04 04:46] LABS: Blood Urea Nitrogen 18 mg/dl (9-20); Calcium 9.2 mg/dl (8.4-10.2); Carbon Dioxide 27 mmol/L (22-30); Chloride 106 mmol/L (98-107); Estimated Creatinine Clearance 83 ml/min; Glucose 131 mg/dl (70-99); HDL Cholesterol 51 mg/dl; LDL Cholesterol, Calculated 87 mg/dl; Potassium 3.7 mmol/L (3.5-5.1); Sodium 142 mmol/L (135-145); Total Cholesterol 184 mg/dl (50-199); Triglyceride 233 mg/dl (10-149); Very Low Density Lipoprotein 46 mg/dl (0-30); eGFR 55.67
[2024-05-04 04:49] LABS: Troponin I 0.061 ng/ml
--- NOTE | 2024-05-04 04:56 | PTCARENOTE ---
no change is assessment overnight. pt drowsy all night but easily arousable. repositioning self. tolerated CPAP all night. labs drawn.
[2024-05-04 08:04] LABS: Glucose - Point of Care 142 mg/dl (70-99)
[2024-05-04 08:16] LABS: Glycohemoglobin (HgbA1c) 6.2 % (4.0-5.6)
[2024-05-04] MEDS: LASIX 80 MG PO (08:36)
[2024-05-04] MEDS: CARDIZEM CD 360 MG PO (08:36)
[2024-05-04] MEDS: DIOVAN 160 MG PO (08:37)
[2024-05-04] MEDS: DESENEX/MITRAZOL/ZEASORB 1 APPLIC TOPICAL ×2 (08:37→19:55)
--- NOTE | 2024-05-04 08:48 | W.PN.INTV ---
Today's Communication / Plan
Recommendations
-
Assessment
-
Assessment: Patient is a 54-year-old male who went to bed last night as he usually does but when he woke up at 10 AM he noticed that his left side was feeling 'funny'. Patient has a past medical history of atrial fibrillation hypertension and is on
a DOAC. When he got out of bed he noticed weakness on his left side and subsequently called paramedics. Patient was noted to have a left-sided facial droop associated with left-sided weakness. He was also hypertensive on presentation. He was
traveling and stated that he forgot his medications and therefore missed a dose of his DOAC both yesterday and today. CT conducted on 05/03/2024 showed rounded parenchymal hemorrhage, centered within the right posterior basal ganglia and thalamus
measuring 1.5 cm in diameter indicating a likely etiology of hypertensive hemorrhage. Patient received K-centra in the emergency department. Patient subsequently admitted to ICU for right-sided parenchymal hemorrhage and left-sided weakness.
Chronic Conditions: Uncontrolled hypertension, atrial fibrillation, hyperlipidemia, type 2 diabetes, obstructive sleep apnea on CPAP, morbid obesity
Impression:
#Intracranial hemorrhage
#Hypertensive emergency
#Paroxysmal atrial fibrillation
#Hyperlipidemia
#Type 2 diabetes
#Obstructive sleep apnea on CPAP
#Chronic HFpEF
Plan:
-Supplemental oxygen as needed
-Aspiration precautions
-Chest x-ray ordered
-Echocardiogram ordered
-Neuro and vascular checks as per protocol
-Aspiration precautions
-CT angiogram of head and neck was negative for intracranial aneurysm. Also, right-sided parenchymal hemorrhage is unchanged in size compared to recent prior CT, with unchanged mild adjacent vasogenic edema.
-Repeat CT head showed stable size of the right basal ganglia intraparenchymal hematoma with surrounding vasogenic edema. There is minimal associated local mass effect.
-PT OT evaluation and treat
-Neurology and neurosurgery continues to follow
-Speech eval
-Monitor blood pressure
-Labetalol IV as needed
-Oral Lasix restarted
-proBNP is 166 on 05/03
-Troponins at 0.061 on 05/04 continue to trend
-Goal BP approximately 140 systolic
-Cardene drip discontinued as patient was going lower than 100 SBP with a rise in Creatinine (1.5) possibly due to nephrons being used to chronically higher systemic BP
-Patient is chest pain free
-CPAP at [id number] (his home settings) resumed. Will use during naps and at bedtime.
-Patient recommended to follow-up.
-Poor compliance/poor adherence to medical regimen noted from outpatient records.
-Smoking cessation encouraged.
-Follow hemoglobin - 14.6 on 05/04
-Lovenox restarted, repeat CT stable and cleared by neurosurgery
-Follow blood glucose- 131 on 05/04
-Insulin on low sliding scale
-DVT prophylaxis- SCDs
-NPO except for medications
Data:
CXR on 05/03/24: No acute cardiopulmonary process.
Head CT on 05/03/24: 1. Focus of rounded parenchymal hemorrhage, centered within the right posterior basal ganglia and thalamus, measuring 1.5 cm in diameter, with a small amount of adjacent vasogenic edema.
2. Most likely etiology hypertensive hemorrhage.
CT Head & Neck Angio W/wo IV on 05/03/24: 1. Negative for intracranial aneurysm.
2. Right-sided parenchymal hemorrhage is unchanged in size compared to recent prior CT, with unchanged mild adjacent vasogenic edema.
2nd CT Head W/o Iv Contrast on 05/03/24: Stable size of the right basal ganglia intraparenchymal hematoma with surrounding vasogenic edema. There is minimal associated local mass effect.
Subjective Dataa
Subjective Data
Date of Service:
Date of Service: May 04, 2024
Patient resting comfortably in bed. Left hemiparesis with facial drooping. Marginal improvement of left upper limb. Following commands. Patient offers no new complaints.
Objective Data
Data Reviewed
Vital Signs / I&O / Oxygen:
Vital Signs
Temp Pulse Resp BP Pulse Ox
97.7 F 63 20 99/60 96
05/04/24 08:05 05/04/24 05:30 05/04/24 05:00 05/04/24 05:30 05/04/24 05:30
Intake and Output
05/03/24 05/04/24 05/05/24
06:59 06:59 06:59
Intake Total 1587.5 / 1700.0 112.5 / 112.5
Output Total 1250 / 1250
Balance 337.5 / 450.0 112.5 / 112.5
SaO2 96
Nasal Cannula flow liters per 2
minute
Physical Exam
General: Comfortable
HEENT: Normocephalic and Anicteric
Cardiovascular: Regular Rhythm
Respiratory: Clear
GI: Soft
Neurology: Awake, Alert and Oriented
Labs/Micro/Reports
Lab Data
05/04/24 04:03
05/04/24 04:03
Laboratory Results
05/03/24 05/03/24
12:33 14:57
PT 13.0 Cancelled
INR 1.00 Cancelled
APTT 28.7 Cancelled
--- NOTE | 2024-05-04 09:10 | PTOTSP ---
Speech Language Pathology
Pt seen for cognitive-linguistic and speech evaluation. Mild dysarthria noted with decreased vocal intensity. Cognitive-linguistic status evaluated via the [employer] Cognitive Assessment (MOCA), version 8.1. Pt with a score of 25/30 where normal
range is 26-30. Mild cognitive deficits noted with impulsivity resulting in errors, decreased short-term memory, and decreased thought organization.
Pt also seen for clinical bedside swallow evaluation. P.O. trials of puree, regular solids, and thin liquids provided. Adequate mastication, bolus formation, and A-P transit noted with no oral residue. No coughing noted with solids or liquids
alone, but with liquid wash post regular solid, cough noted x1.
Recommend:
(1) Regular solids/thin liquids
(2) Aspiration precautions: cautious with solids and liquids in mouth at the same time, sit upright, slow rate
(3) Meds as tolerated
(4) Consider acute rehab at discharge
(5) MANAGER ART to continue to follow to ensure diet tolerance/determine need for VSE and for cognitive-linguistic/speech therapy
--- NOTE | 2024-05-04 10:28 | W.PN.NEURO.1 ---
Addendum entered and electronically signed by Ceci Renner DO 05/04/24 15:01:
I have personally examined the patient. I agree with the SENIOR INFORMATION SECURITY ARCHITECT's Note.
My addenda:
54 year-old with a PMH of afib on Eliquis, htn, and HARLAN on CPAP with L sided weakness and possible confusion in the setting of uncontrolled htn and missed antihypertensive medications. LLE weakness improved on my exam compared to exam documented
below, 5-/5. +LUE drift, proximally 4/5, biceps/triceps 5-, hand contamination consultant 3-4/5. +L central CN 7 palsy, mild. Sensation intact.
-Continue to hold Eliquis.
-Check MRI brain w/wo contrast to evaluate for underlying structural abnormality
-Strict blood pressure control, SBP goal 100-140, per Neurosurgery.
-Monitor on telemetry in the ICU for strict blood pressure control.
-Reviewed serial CT head and CTA head/neck imaging results.
-Per Neurosurgery, okay to monitor patient at , will need to transfer patient urgently if there is a change in mental status.
-NIHSS and neurological checks per unit guidelines.
Will c/t follow.
-DVT prophylaxis, okay to resume subcutaneous DVT prophylaxis today as CT head imaging is stable, per Neurosurgery.
Original Note:
Documented by User: Joselin العراقي NP 05/04/24 10:54
Today's Communication / Plan
-
.
Neuro Assessment/Plan
Assessment
This is a 54-year-old right-handed male with a PMH of Afib (Eliquis), HTN, HFpEF, and HARLAN (cpap) who presented to on 05/03/24 with report of Abrupt onset of left arm and leg weakness with questionable decline in mental status and CT of head
finding of right putaminal hemorrhage as well as accelerated hypertension as the patient admits to having missed medication dosing 1 day ago.
-CT head 05/03/24 1230: Focus of rounded parenchymal hemorrhage, centered within the right posterior basal ganglia and thalamus, measuring 1.5 cm in diameter, with a small amount of adjacent vasogenic edema. Most likely etiology hypertensive
hemorrhage.
-CT Head 05/03/24 1830: Stable size of the right basal ganglia intraparenchymal hematoma with surrounding vasogenic edema. There is minimal associated local mass effect.
-CT Head 05/04/24 at 1030: Stable intraparenchymal hemorrhage.
-CTA head/neck 05/03/24: Negative for intracranial aneurysm. Right-sided parenchymal hemorrhage is unchanged in size compared to recent prior CT, with unchanged mild adjacent vasogenic edema.
I. Acute right posterior basal ganglia and thalamic intraparenchymal hemorrhage with a small amount of vasogenic edema; etiology likely hypertensive hemorrhage.
II. Malignant hypertension in the setting of medication noncompliance.
Plan
-Hold Eliquis.
-Strict blood pressure control, SBP goal 100-140, per Neurosurgery.
-Monitor on telemetry in the ICU for strict blood pressure control.
-Reviewed serial CT head and CTA head/neck imaging results.
-Per Neurosurgery, okay to monitor patient at , will need to transfer patient urgently if there is a change in mental status.
-NIHSS and neurological checks per unit guidelines.
-Provide patient with stroke education packet.
-LDL goal <70. LDL is 87. Initiate atorvastatin 40mg daily.
-Goal normoglycemia, hbA1c is 6.2.
-DVT prophylaxis, okay to resume subcutaneous DVT prophylaxis today as CT head imaging is stable, per Neurosurgery.
-PT/OT/ST evaluations.
-Will follow.
Subjective/Objective
Subjective Data
Date of Service: May 04, 2024
No acute events overnight. Patient denies any headache, dizziness, vision changes, speech/swallow difficulty, nausea/vomiting, chest pain, palpitations, and shortness of breath. He endorses ongoing right-sided weakness, ataxia, and mild decreased
sensation.
Objective Data
Vital Signs
Temp Pulse Resp BP Pulse Ox
97.7 F 63 20 99/60 96
05/04/24 08:05 05/04/24 05:30 05/04/24 05:00 05/04/24 05:30 05/04/24 05:30
PT Cancelled 05/03/24 14:57
INR Cancelled 05/03/24 14:57
APTT Cancelled 05/03/24 14:57
Sodium 142 mmol/L (135-145) 05/04/24 04:03
Potassium 3.7 mmol/L (3.5-5.1) 05/04/24 04:03
BUN 18 mg/dl (9-20) 05/04/24 04:03
Glucose 131 mg/dl (70-99) H 05/04/24 04:03
Calcium 9.2 mg/dl (8.4-10.2) 05/04/24 04:03
Krv-M-Lozkcgpxcns Pept 166 pg/ml 05/03/24 18:01
LDL Cholesterol, Calc 87 mg/dl 05/04/24 04:03
Vitamin B12 429 pg/ml (239-931) 05/03/24 12:33
Ur Buprenorphine Cancelled 05/03/24 15:23
Ur Buprenorphine Negative (Negative) 05/03/24 15:23
Patient Allergies
lisinopril [Lisinopril] Adverse Reaction (Intermediate, Verified 05/03/24 14:16)
'my heart went crazy'
LDL Level: >70, statin ordered
Review of Systems
-
History Source: Patient
EENT: Negative Blurry Vision, Decreased Vision or Swallowing Difficulty
Respiratory: Negative Cough or Trouble Breathing
Cardiac: Negative Chest Pain or Palpitations
Abdomen/GI: Negative Nausea or Vomiting
Neuro: Weakness, Numbness, Ataxia and Speech Problem; Negative Dizzy, Headache or Tremors
Physical Exam
-
General: No Apparent Distress
Eyes: No Ptosis and PERRLA
HEENT: Normocephalic and Atraumatic
Neck: Full Range of Motion
Respiratory: No Dyspnea
GI: Other (obese, rounded)
Extremities: No Clubbing, No Cyanosis and No Edema
Psych: Unremarkable
Extended Neurological Exam
Mood & Affect: Mood Unremarkable; Negative Affect Unremarkable (flat affect)
Attention Span & Concentration: Awake, Alert, Interactive and Closes Eyes after Stimulation
Memory: Unremarkable (AAOx3) and Able to Recall
Tremor: Hand Tremor Absent and Head Tremor Absent
Involuntary Movement: None
Speech: Quality Unremarkable, Quantity Unremarkable and Rate of Production Unremarkable
Cranial Nerve II: Left Eye: Pupillary Reactivity Unremarkable, Pupillary Size Unremarkable and Visual Browne Intact
Cranial Nerve II: Right Eye: Pupillary Reactivity Unremarkable, Pupillary Size Unremarkable and Visual Browne Intact
Cranial Nerves III, IV, : Extraocular Movement: Extraocular Movement Full in all Directions
Cranial Nerve V: Facial Sensation: Negative Intact to Light Touch (mildly decreased left face)
Cranial Nerve VII: Facial Symmetry: Reduced (left facial droop)
Cranial Nerve VIII: Hearing: Unremarkable Hearing to Normal Conversational Volume
Cranial Nerves IX, X: Palate Movement: Palate Elevation Symmetric
Cranial Nerve XI: Shoulder Shrug: Reduced on Left
Cranial Nerve XII: Tongue Protusion: Midline
Muscle Strength, Overall: Reduced on Left (LUE 3+/5, LLE 4+/5)
Muscle Bulk & Tone: Reduced Tone (LUE)
Pronator Drift: Drift in Left Upper Extremity and Drift in Left Lower Extremity
Cold Sensation: Unremarkable
Vibration Sensation: Unremarkable
Touch Sensation: Double Simultaneous Stimulation Unremarkable; Negative Unremarkable (mildly reduced on left side)
Coordination: Negative Qpsghp-uewc-lxcmif Testing Unremarkable (LUE ataxia)
Babinski Sign: Absent Bilaterally
Modified Kern Score (MRS)
-
Modified Kern Scale (mRS): Moderately severe disability. Unable to attend to bodily needs/walk.
Score: 4
Data Reviewed
-
CT-A: Report Reviewed and Image Reviewed
CT Head: Report Reviewed and Image Reviewed
Echocardiogram: Pending
Labs: Report Reviewed
Lipid Profile: Report Reviewed
HgbA1C: Report Reviewed
Reviewed with: Physician and Patient
Medications
-
Active Medications
Generic Name Dose Route Start Last Admin
Trade Name Freq PRN Reason Stop Dose Admin
Acetaminophen 650 mg 05/03/24 14:55
Acetaminophen 650 Mg Rectal Suppository RECTAL 05/31/24 14:54
Q4HPRN PRN
BROWNE, mild pain, or temp >100.4F
Acetaminophen 650 mg 05/03/24 14:55
Acetaminophen 325 Mg Tablet PO 05/31/24 14:54
Q4HPRN PRN
BROWNE, mild pain, or temp >100.4F
Dextrose 12.5 grams 05/03/24 15:08
Dextrose 50% (0.5 Grams/Ml) 50 Ml Syringe IV 05/31/24 15:07
[id number] PRN
hypoglycemia
Protocol
Diltiazem HCl 360 mg 05/04/24 08:00 05/04/24 08:36
Diltiazem 180 Mg Extended Release (24 H) Capsule PO 06/01/24 07:59 360 mg
DAILY GALE Administration
Furosemide 80 mg 05/04/24 08:00 05/04/24 08:36
Furosemide 40 Mg Tablet PO 06/01/24 07:59 80 mg
DAILY GALE Administration
Glucagon 1 mg 05/03/24 15:08
Glucagon 1 Mg Vial IM 05/31/24 15:07
PRN PRN
hypoglycemia
Protocol
Heparin Sodium 5,000 units 05/04/24 16:00
Heparin 5,000 Units/Ml 1 Ml Vial SC 06/01/24 15:59
Q8 GALE
Nicardipine/Sodium Chloride 40 mg in 200 mls @ 0 mls/hr 05/03/24 14:55 05/04/24 08:14
Cardene IV 200 mls
PER PROTOCOL GALE Administration
Protocol
Per Protocol
Insulin Aspart 0 units 05/03/24 18:00 05/04/24 05:24
Insulin Aspart Low Resistance 300 Units/3 Ml Pen.Injctr SC 05/31/24 17:59 Not Given
Q6 GALE
Protocol
Miconazole Nitrate 0 applic 05/03/24 20:00 05/04/24 08:37
Miconazole Powder Bottle TOPICAL 05/31/24 19:59 1 applic
BID GALE Administration
Sodium Chloride 0 flush 05/03/24 15:00
Sodium Chloride 0.9% (Flush) Syringe IV 05/31/24 14:59
PER PROTOCOL GALE
Valsartan 160 mg 05/04/24 08:00 05/04/24 08:37
Valsartan 80 Mg Tablet PO 06/01/24 07:59 160 mg
DAILY GALE Administration
Home Medications
�Medication �Instructions �Recorded
furosemide 80 mg tablet 80 mg PO DAILY Fluid 11/17/18
Retention/Swelling
diltiazem HCl 360 mg capsule,24 360 mg PO DAILY Arrhythmia 07/30/23
hr,extended release
apixaban 5 mg tablet (Eliquis) 5 mg PO BID Blood Clot 05/03/24
Prevention/Tx
valsartan 160 mg tablet 160 mg PO DAILY Blood Pressure 05/03/24
NIH Stroke Score
Subsequent NIH Scale
Date of Subsequent NIH Scale: 05/04/24
Time of Subsequent NIH Scale: 09:45
NIH Stroke Score
Level of Consciousness: 0 - Alert
LOC Questions: 0-Answers both correctly
LOC Commands: 0-Performs both correctly
Best Horizontal Gaze: 0-Normal
Visual Browne: 0=Normal, no visual loss
Facial Palsy: 1=Minor paralysis
Motor - Right Arm: 0=No drift 10 seconds
Motor - Left Arm: 1=Drift < 10 seconds
Motor - Right Le-No drift 5 seconds
Motor - Left Le-Drift < 5 seconds
Limb Ataxia: 2-Present in two limbs
Sensation: 1-Mild loss
Best Language: 0-No aphasia
Dysarthria: 1-Mild slurring
Extinction and Inattention: 0-No abnormality
Total Score:: 7
Modified Kern (mRS) Score
Modified Kern Scale (mRS): Moderately severe disability. Unable to attend to bodily needs/walk.
Score: 4

Documented by User: Ceci Renner DO 05/04/24 14:49
Modified Kern Score (MRS)
-
Score: 4
NIH Stroke Score
NIH Stroke Score
Total Score:: 7
Modified Casey (mRS) Score
Score: 4
--- NOTE | 2024-05-04 10:52 | W.PN.HOSP.TC ---
Today's Communication/Plan
-
start statin
bp control
trend cr
hold eliquis
pt/ot
start diet
Assessment / Plan
Assessment / Plan
General: Comfortable and Conversant (Noted slurred speech)
HEENT: Anicteric and Moist mucous membranes
Respiratory: Clear and Non Labored Respirations
Cardiac: S1/S2 and Regular Rhythm
GI: Soft and Non Tender
Musculoskeletal: No Clubbing, No Cyanosis and No Edema
Skin: Warm and Dry
Neuro: Awake, Alert, Slurred Speech (Due to left facial weakness), Facial Droop (Left) and Other (Left upper extremity drift)
Psych: Calm
Intracranial Hemorrhage likely secondary to noncompliance with uncontrolled blood pressure/drug abuse/possibility of exacerbated with Eliquis
-Patient received K-Centra in ED
-Consult Neurology and Neurosurgery
-Monitor Neuro-checks
-Hold antiplatelets and anticoagulants
-CT angio head and neck negative for aneurysm
-A1c 6.2. LDL 87. Start Lipitor.
-Surveillance head CT with stable hemorrhagic site with mild edema.
Hypertensive Emergency
Primary hypertension noncompliant
-Counseled on compliance.
-Restarted home blood pressure meds Cardizem and Lasix and valsartan
-Wean nicardipine drip as tolerated. Blood pressure improving.
Elevated Troponin, likely related to hypertensive emergency/drug abuse leading to possible vasospasms
-Continue to trend troponin to peak
-Chest pain-free. Echo. proBNP 166 patient with morbid obesity.
Methamphetamine drug abuse
-UDS noted to be positive. Patient states does weekly meth.
Acute kidney injury likely prerenal
-Continue with gentle IV fluids.
Paroxysmal Atrial Fibrillation
-Hold Eliquis in setting of intracranial hemorrhage
Chronic HFpEF
-Monitor Is&Os and Daily Weights
Hyperlipidemia
-Check fasting lipid panel
Diabetes Mellitus, Type II
-HgbA1c in Jul 2023 was 8.0
-Recheck HgbA1c
-Monitor sugars and continue coverage insulin
Obstructive Sleep Apnea
-Continue CPAP at 10
Morbid Obesity due to Excess Calories
-Affects all aspects of care
DVT Proph: Started on heparin subcu
Code Status:Full Code
Anticipated Discharge: > 48 hours
Subjective/Interval History
-
Date of Service: May 04, 2024
states feeling tired
bp has improved
Objective Data
-
Labs:
Laboratory Results
05/04/24 05/04/24
04:03 12:00
WBC 13.5 H Pending
Hgb 14.6 Pending
Hct 42.3 Pending
Plt Count 269 Pending
Sodium 142 Pending
Potassium 3.7 Pending
Chloride 106 Pending
Carbon Dioxide 27 Pending
BUN 18 Pending
Creatinine 1.5 H Pending
Glucose 131 H Pending
Calcium 9.2 Pending
Total Bilirubin Pending
AST Pending
ALT Pending
Alkaline Phosphatase Pending
Vital Signs:
Vital Signs
Temp Pulse Resp BP Pulse Ox
97.7 F 59 18 132/79 97
05/04/24 08:05 05/04/24 10:30 05/04/24 10:30 05/04/24 10:30 05/04/24 10:30
I&O
05/03/24 05/04/24 05/05/24
06:59 06:59 06:59
Intake Total 1587.5 / 1700.0 162.5 / 162.5
Output Total 1250 / 1250
Balance 337.5 / 450.0 162.5 / 162.5
Data Reviewed
-
Total Time Spent with Patient (in minutes): 60
[2024-05-04 11:26] LABS: Troponin I 0.051 ng/ml
[2024-05-04 12:28] LABS: Hemoglobin 14.9 g/dL (13.0-18.0); Mean Corp Hgb Conc. 34.7 g/dL (33.0-37.0); Mean Corpuscular Hgb 30.8 pg (27.0-31.0); Platelet Count 280 10^3/uL (130-400); Red Blood Cell Count 4.83 10^6/uL (4.70-6.10); Red Cell Dist. Width 13.2 % (11.5-14.5); White Blood Cell Count 11.7 10^3/uL (4.8-10.8)
[2024-05-04 12:29] LABS: Glucose - Point of Care 128 mg/dl (70-99)
[2024-05-04 12:30] LABS: Urine Albumin 1+ (Neg - Trace); Urine Bilirubin Negative (Negative); Urine Character Clear (Clear); Urine Color Yellow; Urine Glucose Negative (Negative); Urine Ketone Negative (Negative); Urine Leukocyte Negative (Negative); Urine Nitrite Negative (Negative); Urine Occult Blood Negative (Negative); Urine Specific Gravity 1.015 (<1.030); Urine Urobilinogen Negative (Neg - 1+)
--- NOTE | 2024-05-04 12:38 | CM ---
CM following re: discharge planning.
Discussed in Rounds, reviewed pt's chart, met with pt and pt's mother at bedside.
Pt is a 54 year old male, admitted with primary dx of Acute right posterior basal ganglia and thalamic intraparenchymal hemorrhage with a small amount of vasogenic edema; etiology likely hypertensive hemorrhage.
Pt reports he lives alone in a [address], has a son and supportive parents. 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 Pt reports he drinks 2-3 shots of vodka 3-4 times per week and smoke cigars. Pt denied any
other drugs using.
PT and OT evaluations noted - acute rehab recommended. Both pt and his mother are aware, [facility] requested. A referral to [facility] made.
PM&R consult requested.
PCP: Pt reports he does not remember PCP name but his office locates [phone]
Pharmacy: [facility]
D/C plan: [facility].
CM will follow to assist pt with discharge to [facility].
[2024-05-04 12:57] LABS: ALT (SGPT) 19 U/L (0-50); AST (SGOT) 25 U/L (17-59); Albumin 3.9 g/dl (3.5-5.0); Alkaline Phosphatase 95 U/L (38-126); Blood Urea Nitrogen 20 mg/dl (9-20); Calcium 9.3 mg/dl (8.4-10.2); Carbon Dioxide 28 mmol/L (22-30); Chloride 105 mmol/L (98-107); Estimated Creatinine Clearance 83 ml/min; Glucose 135 mg/dl (70-99); Potassium 3.7 mmol/L (3.5-5.1); Sodium 141 mmol/L (135-145); Total Bilirubin 0.9 mg/dl (0.2-1.3); Total Protein 6.3 g/dl (6.3-8.2); eGFR 55.67
--- NOTE | 2024-05-04 13:00 | PTCARENOTE ---
CT head complete per order.
Left facial droop and left sided weakness and ataxia.
Pt drowsy. SpO2 dips to 87% when pt asleep on room air. Now 96% on 2L NC.
Cardene off at 0830. Now back on for BP 164/70.
All other assessments unchanged.
[2024-05-04 15:05] LABS: Urine Mucus Few; Urine Squamous Cell >30 /LPF (Few)
[2024-05-04 15:07] LABS: Urine Bacteria Few (Negative)
[2024-05-04 15:26] LABS: Urine Sodium 56 mmol/L (30-90)
--- NOTE | 2024-05-04 16:00 | PTCARENOTE ---
Cardene titrated per protocol.
Neuro status remains unchanged.
All other assessments unchanged.
[2024-05-04] MEDS: HEPARIN 5000 UNITS SC ×2 (16:18→23:55)
[2024-05-04 16:46] LABS: Glucose - Point of Care 157 mg/dl (70-99)
[2024-05-04] MEDS: LIPITOR 40 MG PO (18:29)
[2024-05-04 21:55] LABS: Glucose - Point of Care 126 mg/dl (70-99)
[2024-05-05] VITALS (58 sets, daily range): BP systolic 105–171; BP diastolic 56–94; PULSE 64–68; O2SAT 94–95; BMI 41.5
[2024-05-05] MEDS: CARDENE 200 IV ×3 (03:13→20:06)
[2024-05-05 04:32] LABS: % Basophils 0.6 % (0-2); % Immature Granulocytes 0.3 % (0-0.5); % Monocytes 7.6 % (1.7-9.3); % Neutrophils 62.5 % (42.2-75.2); Absolute Basophils 0.1 10^3/uL (0-0.2); Absolute Eosinophils 0.5 10^3/uL (0-0.7); Absolute Lymphocytes 3.2 10^3/uL (1.2-3.4); Absolute Neutrophils 7.9 10^3/uL (1.4-6.5); Hematocrit 44.7 % (39.0-52.0); Hemoglobin 15.4 g/dL (13.0-18.0); Mean Corp Hgb Conc. 34.5 g/dL (33.0-37.0); Mean Corpuscular Hgb 30.7 pg (27.0-31.0); Mean Corpuscular Volume 89.2 fL (80.0-94.0); Mean Platelet Volume 9.9 fL (7.4-10.4); Nucleated Red Blood Cells % 0 % (-); Platelet Count 282 10^3/uL (130-400); Red Blood Cell Count 5.01 10^6/uL (4.70-6.10); Red Cell Dist. Width 13.1 % (11.5-14.5); White Blood Cell Count 12.6 10^3/uL (4.8-10.8)
[2024-05-05 04:44] LABS: Blood Urea Nitrogen 22 mg/dl (9-20); Calcium 9.3 mg/dl (8.4-10.2); Carbon Dioxide 27 mmol/L (22-30); Chloride 107 mmol/L (98-107); Estimated Creatinine Clearance 89 ml/min; Glucose 140 mg/dl (70-99); Potassium 3.6 mmol/L (3.5-5.1); Sodium 142 mmol/L (135-145); eGFR > 60.00
--- NOTE | 2024-05-05 05:32 | PTCARENOTE ---
pt drowsy the entire shift. pt sleeps until you wake him up, will stay awake for a few seconds then falls back to sleep. labs drawn
--- NOTE | 2024-05-05 08:15 | PTCARENOTE ---
Assumed care of pt at 0715 following shift report. Assessment as documented, NIHSS completed. Pt drowsy but easily arousable to name. Resp Therapy in room and removed CPap. POx down to 87% on RA- O2 applied at 2l/min via NC. Pt declined ordering
breakfast. Tapering Cardene gtt for BP as documented. Call kelly w/in pt reach, safe environment maintained.
[2024-05-05] MEDS: CARDIZEM CD 360 MG PO (08:25)
[2024-05-05] MEDS: NOVOLOG FLEXPEN-LOW RESISTANCE SC ×3 (08:25→16:48)
[2024-05-05] MEDS: DESENEX/MITRAZOL/ZEASORB 1 APPLIC TOPICAL ×2 (08:26→19:39)
[2024-05-05] MEDS: LASIX 80 MG PO (08:26)
[2024-05-05] MEDS: DIOVAN 160 MG PO (08:27)
[2024-05-05] MEDS: HEPARIN 5000 UNITS SC ×3 (08:28→23:46)
[2024-05-05 08:34] LABS: Glucose - Point of Care 130 mg/dl (70-99)
--- NOTE | 2024-05-05 08:47 | W.PN.NEURO.1 ---
Addendum entered and electronically signed by Ceci Renner DO 05/05/24 19:24:
MRI brain ruled out any underlying structural abnormality contributing to hemorrhage:
'Stable subacute right basal ganglia/thalamic hemorrhage. No evidence for underlying mass/enhancement.
Moderate T2/FLAIR hyperintense foci within the periventricular and deep subcortical white matter, greater than expected for age. '
Addendum entered and electronically signed by Ceci Renner, 05/05/24 19:23:
I have personally examined the patient. I agree with the MANUFACTURING TECHNOLOGIST's Note.
My addenda: 54 year-old male with L sided weakness and confusion with HCT showing a hypertensive putaminal hemorrhage in the setting of UDS + for methamphetamines and missed antihypertensive medication.Remains a bit lethargic but L sided weakness is
mildly improved compared to yesterday.
Agree with plan as documented below. Reviewed with neurosurgery; rec holding anticoagulation for 7 days from symptom onset; then can restart if symptoms/exam remains unchanged.
If exam remains stable, can be transferred out of the ICU tomorrow.
Should not drive given deficits.
Will need OP f/u with neurology clinic in ~4 weeks.
Neurology will f/u as needed. Please call with further questions.
Original Note:
Documented by User: Joselin العراقي NP 05/05/24 16:56
Today's Communication / Plan
-
.
Neuro Assessment/Plan
Assessment
This is a 54-year-old right-handed male with a PMH of Afib (Eliquis), HTN, HFpEF, and HARLAN (cpap) who presented to on 05/03/24 with report of Abrupt onset of left arm and leg weakness with questionable decline in mental status and CT of head
finding of right putaminal hemorrhage as well as accelerated hypertension as the patient admits to having missed medication dosing 1 day ago. +Methamphetamine on arrival.
-CT head 05/03/24 1230: Focus of rounded parenchymal hemorrhage, centered within the right posterior basal ganglia and thalamus, measuring 1.5 cm in diameter, with a small amount of adjacent vasogenic edema. Most likely etiology hypertensive
hemorrhage.
-CT Head 05/03/24 1830: Stable size of the right basal ganglia intraparenchymal hematoma with surrounding vasogenic edema. There is minimal associated local mass effect.
-CT Head 05/04/24 at 1030: Stable intraparenchymal hemorrhage.
-CTA head/neck 05/03/24: Negative for intracranial aneurysm. Right-sided parenchymal hemorrhage is unchanged in size compared to recent prior CT, with unchanged mild adjacent vasogenic edema.
-MRI brain 05/04/24: Stable subacute right basal ganglia/thalamic hemorrhage. No evidence for underlying mass/enhancement. Moderate T2/FLAIR hyperintense foci within the periventricular and deep subcortical white matter, greater than expected for
age. Differential includes advanced chronic small vessel changes, demyelinating lesions, Lyme disease, chronic migraines or vasculitis.
I. Acute right posterior basal ganglia and thalamic intraparenchymal hemorrhage with a small amount of vasogenic edema; etiology likely hypertensive hemorrhage in the setting of missed medication and methamphetamine usage.
Plan
-Hold Eliquis. Per Neurosurgery, okay to resume OAC 7 days from symptom onset, 05/10/24.
-Strict blood pressure control, SBP goal 120-140.
-Monitor on telemetry. Monitor in the ICU for one additional day, likely okay to move to step down unit tomorrow.
-Reviewed serial CT head, MRI brain, and CTA head/neck imaging results.
-Per Neurosurgery, okay to monitor patient at , will need to transfer patient urgently if there is a change in mental status.
-NIHSS and neurological checks per unit guidelines.
-Provide patient with stroke education packet.
-LDL goal <70. LDL is 87. Initiate atorvastatin 40mg daily.
-Goal normoglycemia, hbA1c is 6.2.
-DVT prophylaxis, okay to resume subcutaneous DVT prophylaxis today as CT head imaging is stable, per Neurosurgery.
-PT/OT/ST evaluations.
-No driving. Will re-evaluate this at follow-up appt with Neurology in about 4 weeks. Will likely need driving eval by OT. No legal indications to report to [facility] unless it is felt that the patient will no follow no driving instructions.
-Will follow.
Subjective/Objective
Subjective Data
Date of Service: May 05, 2024
No acute events overnight. Patient reports ongoing right-sided weakness, unchanged. He denies any headache, dizziness, vision changes, speech/swallow difficulty, numbness, nausea, chest pain, palpitations, and shortness of breath.
Objective Data
Vital Signs
Temp Pulse Resp BP Pulse Ox
99.2 F 70 17 138/71 96
05/05/24 03:46 05/05/24 08:27 05/05/24 05:15 05/05/24 08:27 05/04/24 20:58
Lab Results
05/05/24 04:22
05/05/24 04:22
PT Cancelled 05/03/24 14:57
INR Cancelled 05/03/24 14:57
APTT Cancelled 05/03/24 14:57
Sodium 142 mmol/L (135-145) 05/05/24 04:22
Potassium 3.6 mmol/L (3.5-5.1) 05/05/24 04:22
BUN 22 mg/dl (9-20) H 05/05/24 04:22
Glucose 140 mg/dl (70-99) H 05/05/24 04:22
Calcium 9.3 mg/dl (8.4-10.2) 05/05/24 04:22
Dng-O-Uyxaxweftgx Pept 166 pg/ml 05/03/24 18:01
LDL Cholesterol, Calc 87 mg/dl 05/04/24 04:03
Vitamin B12 429 pg/ml (239-931) 05/03/24 12:33
Ur Buprenorphine Cancelled 05/03/24 15:23
Ur Buprenorphine Negative (Negative) 05/03/24 15:23
Patient Allergies
lisinopril [Lisinopril] Adverse Reaction (Intermediate, Verified 05/03/24 14:16)
'my heart went crazy'
LDL Level: >70, statin ordered
Review of Systems
-
History Source: Patient
EENT: Negative Blurry Vision, Decreased Vision or Swallowing Difficulty
Respiratory: Negative Cough or Trouble Breathing
Cardiac: Negative Chest Pain or Palpitations
Abdomen/GI: Negative Nausea
Neuro: Weakness and Ataxia; Negative Dizzy, Headache, Numbness, Tremors or Speech Problem
Physical Exam
-
General: No Apparent Distress
Eyes: No Ptosis and PERRLA
HEENT: Normocephalic and Atraumatic
Neck: Full Range of Motion
GI: Non-distended
Extremities: No Clubbing, No Cyanosis and No Edema
Psych: Unremarkable
Extended Neurological Exam
Mood & Affect: Negative Affect Unremarkable (flat affect)
Attention Span & Concentration: Interactive, Closes Eyes after Stimulation and Other (drowsy)
Memory: Unremarkable (AAOx3) and Able to Recall
Tremor: Hand Tremor Absent and Head Tremor Absent
Involuntary Movement: None
Speech: Quantity Unremarkable, Rate of Production Unremarkable and Dysarthric
Cranial Nerve II: Left Eye: Pupillary Reactivity Unremarkable, Pupillary Size Unremarkable and Visual Browne Intact
Cranial Nerve II: Right Eye: Pupillary Reactivity Unremarkable, Pupillary Size Unremarkable and Visual Browne Intact
Cranial Nerves III, IV, : Extraocular Movement: Extraocular Movement Full in all Directions
Cranial Nerve V: Facial Sensation: Intact to Light Touch
Cranial Nerve VII: Facial Symmetry: Reduced (left facial droop)
Cranial Nerve VIII: Hearing: Unremarkable Hearing to Normal Conversational Volume
Cranial Nerves IX, X: Palate Movement: Palate Elevation Symmetric
Cranial Nerve XI: Shoulder Shrug: Reduced on Left
Cranial Nerve XII: Tongue Protusion: Midline
Muscle Strength, Overall: Reduced on Left (LUE 3+/5, LLE 4+/5)
Pronator Drift: Drift in Left Upper Extremity and Drift in Left Lower Extremity
Touch Sensation: Double Simultaneous Stimulation Unremarkable
Coordination: Negative Pesatm-edbn-amrtoo Testing Unremarkable (LUE ataxia)
Babinski Sign: Absent Bilaterally
Modified Shasta Score (MRS)
-
Modified Casey Scale (mRS): Moderately severe disability. Unable to attend to bodily needs/walk.
Score: 4
Data Reviewed
-
MRI Head: Report Reviewed and Image Reviewed
Labs: Report Reviewed
Lipid Profile: Report Reviewed
HgbA1C: Report Reviewed
Reviewed with: Physician and Patient
Medications
-
Active Medications
Generic Name Dose Route Start Last Admin
Trade Name Freq PRN Reason Stop Dose Admin
Acetaminophen 650 mg 05/03/24 14:55
Acetaminophen 650 Mg Rectal Suppository RECTAL 05/31/24 14:54
Q4HPRN PRN
BROWNE, mild pain, or temp >100.4F
Acetaminophen 650 mg 05/03/24 14:55
Acetaminophen 325 Mg Tablet PO 05/31/24 14:54
Q4HPRN PRN
BROWNE, mild pain, or temp >100.4F
Atorvastatin Calcium 40 mg 05/04/24 18:00 05/05/24 16:48
Atorvastatin (Lipitor) 40 Mg Tablet PO 06/01/24 17:59 40 mg
QPM GALE Administration
Carvedilol 3.125 mg 05/05/24 15:00 05/05/24 15:16
Carvedilol 3.125 Mg Tablet PO 06/02/24 14:59 3.125 mg
BID GALE Administration
Dextrose 12.5 grams 05/03/24 15:08
Dextrose 50% (0.5 Grams/Ml) 50 Ml Syringe IV 05/31/24 15:07
[id number] PRN
hypoglycemia
Protocol
Diltiazem HCl 360 mg 05/04/24 08:00 05/05/24 08:25
Diltiazem 180 Mg Extended Release (24 H) Capsule PO 06/01/24 07:59 360 mg
DAILY GALE Administration
Furosemide 80 mg 05/04/24 08:00 05/05/24 08:26
Furosemide 40 Mg Tablet PO 06/01/24 07:59 80 mg
DAILY GALE Administration
Glucagon 1 mg 05/03/24 15:08
Glucagon 1 Mg Vial IM 05/31/24 15:07
PRN PRN
hypoglycemia
Protocol
Heparin Sodium 5,000 units 05/04/24 16:00 05/05/24 15:16
Heparin 5,000 Units/Ml 1 Ml Vial SC 06/01/24 15:59 5,000 units
Q8 GALE Administration
Nicardipine/Sodium Chloride 40 mg in 200 mls @ 0 mls/hr 05/03/24 14:55 05/05/24 06:28
Cardene IV 200 mls
PER PROTOCOL GALE Administration
Protocol
Per Protocol
Insulin Aspart 0 units 05/05/24 07:30 05/05/24 16:48
Insulin Aspart Low Resistance 300 Units/3 Ml Pen.Injctr SC 06/02/24 07:29 Not Given
AC GALE
Protocol
Labetalol HCl 10 mg 05/05/24 10:52
Labetalol Hcl 5 Mg/1 Ml (20 Mg/4 Ml) Injection IV 06/02/24 10:51
Q6HPRN PRN
SBP >140
Miconazole Nitrate 0 applic 05/03/24 20:00 05/05/24 08:26
Miconazole Powder Bottle TOPICAL 05/31/24 19:59 1 applic
BID GALE Administration
Sodium Chloride 0 flush 05/03/24 15:00
Sodium Chloride 0.9% (Flush) Syringe IV 05/31/24 14:59
PER PROTOCOL GALE
Valsartan 160 mg 05/04/24 08:00 05/05/24 08:27
Valsartan 80 Mg Tablet PO 06/01/24 07:59 160 mg
DAILY GALE Administration
Home Medications
�Medication �Instructions �Recorded
furosemide 80 mg tablet 80 mg PO DAILY Fluid 11/17/18
Retention/Swelling
diltiazem HCl 360 mg capsule,24 360 mg PO DAILY Arrhythmia 07/30/23
hr,extended release
apixaban 5 mg tablet (Eliquis) 5 mg PO BID Blood Clot 05/03/24
Prevention/Tx
valsartan 160 mg tablet 160 mg PO DAILY Blood Pressure 05/03/24

Documented by User: Ceci Renner, 05/05/24 19:17
Modified Shasta Score (MRS)
-
Score: 4
--- NOTE | 2024-05-05 10:42 | W.PN.INTV ---
Today's Communication / Plan
Recommendations
-Will attempt to wean off nicardipine. If successful we will consider downgrading to telemetry.
Assessment
-
Assessment: Patient is a 54-year-old male who went to bed last night as he usually does but when he woke up at 10 AM he noticed that his left side was feeling 'funny'. Patient has a past medical history of atrial fibrillation hypertension and is on
a DOAC. When he got out of bed he noticed weakness on his left side and subsequently called paramedics. Patient was noted to have a left-sided facial droop associated with left-sided weakness. He was also hypertensive on presentation. He was
traveling and stated that he forgot his medications and therefore missed a dose of his DOAC both yesterday and today. CT conducted on 05/03/2024 showed rounded parenchymal hemorrhage, centered within the right posterior basal ganglia and thalamus
measuring 1.5 cm in diameter indicating a likely etiology of hypertensive hemorrhage. Patient received K-centra in the emergency department. Patient subsequently admitted to ICU for right-sided parenchymal hemorrhage and left-sided weakness.
Chronic Conditions: Uncontrolled hypertension, atrial fibrillation, hyperlipidemia, type 2 diabetes, obstructive sleep apnea on CPAP, morbid obesity
Impression:
#Intracranial hemorrhage
#Hypertensive emergency
#Acute Kidney Injury
#Paroxysmal atrial fibrillation
#Hyperlipidemia
#Type 2 diabetes
#Obstructive sleep apnea on CPAP
#Chronic HFpEF
Plan:
-Neurological status stable overnight
-Patient blood pressure improved and stable in the 140 range. Continue with strict blood pressure control in the view of acute kidney injury.
-Will attempt to wean off nicardipine. If successful we will consider downgrading to telemetry.
-Patient remains somnolent but is easily aroused
-Left-sided hemiparesis has improved. Left lower neurological exam normal. Left sided plantarflexion and dorsiflexion strong. No numbness, pain, or tingling noted. Left-sided facial droop shows marginal improvement.
-Neuro and vascular checks as per protocol
-CT angiogram of head and neck was negative for intracranial aneurysm. Also, right-sided parenchymal hemorrhage is unchanged in size compared to recent prior CT, with unchanged mild adjacent vasogenic edema.
-Repeat CT head showed stable size of the right basal ganglia intraparenchymal hematoma with surrounding vasogenic edema. There is minimal associated local mass effect.
-PT OT evaluation and treat
-Neurology and neurosurgery continues to follow
-Speech eval recommended aspiration precautions including cautions with solids and liquids and vitals at the same time, patient should sit upright and consume food at a slow rate. Speech-language pathology will continue to follow patient
-Supplemental oxygen as needed
-Aspiration precautions
-Chest x-ray showed no acute cardiopulmonary process
-CPAP at [id number] (his home settings) resumed. Will use during naps and at bedtime.
-Avoid sedatives
-Patient recommended to follow-up.
-Poor compliance/poor adherence to medical regimen noted from outpatient records.
-Smoking cessation encouraged.
-Monitor blood pressure
-Labetalol every 6 hours as needed to ensure blood pressure remains around 140
-Oral Lasix restarted
-proBNP is 166 on 05/03
-Troponins at 0.061 on 05/04 continue to trend
-Goal BP approximately 140 systolic
-Patient is chest pain free
-Echocardiogram on 05/04/2024 showed moderate concentric left ventricular hypertrophy. Normal left ventricular chamber size. Normal left ventricular systolic function. Left ventricular ejection fraction at 74%. Normal diastolic function. Indexed
left atrial volume was mildly abnormal. No significant change from prior echocardiogram on 11/18/2018
-Acute kidney injury: Possibly due to decrease in blood pressure. Goal is to continue control of blood pressure between 120 and 140.
-Urinalysis was not suspicious for infectious process
-Creatinine is at 1.4 which is lower than yesterday which was 1.5. BUN slightly elevated to 22 on 05/05 from 20 on 05/04
-Consider renal evaluation
-Continue supportive care
-Follow hemoglobin - 14.6 on 05/04
-Lovenox restarted, repeat CT stable and cleared by neurosurgery
-Follow blood glucose- 131 on 05/04
-Insulin on low sliding scale
-DVT prophylaxis-subcutaneous heparin�cleared by neurosurgery
-Diet as tolerated
Data:
Echo on 05/04/14: Moderate concentric left ventricular hypertrophy. Normal left ventricular chamber size. Normal left ventricular systolic function. Left ventricular ejection fraction is 74% by Gray's method. Normal diastolic function. Indexed
LA volume is mildly abnormal (35-41 mL/m2). Since echocardiogram 11/18/2018, there is no significant change.
CXR on 05/03/24: No acute cardiopulmonary process.
Head CT on 05/03/24: 1. Focus of rounded parenchymal hemorrhage, centered within the right posterior basal ganglia and thalamus, measuring 1.5 cm in diameter, with a small amount of adjacent vasogenic edema.
2. Most likely etiology hypertensive hemorrhage.
CT Head & Neck Angio W/wo IV on 05/03/24: 1. Negative for intracranial aneurysm.
2. Right-sided parenchymal hemorrhage is unchanged in size compared to recent prior CT, with unchanged mild adjacent vasogenic edema.
2nd CT Head W/o Iv Contrast on 05/03/24: Stable size of the right basal ganglia intraparenchymal hematoma with surrounding vasogenic edema. There is minimal associated local mass effect.
Subjective Dataa
Subjective Data
Date of Service:
Date of Service: May 05, 2024
Patient laying comfortable in bed. Patient offers no new additional complaints. Slight improvement on left-sided weakness. His left lower extremity is able to do neurological exam normally with little weakness. Improved left-sided plantarflexion
and dorsiflexion. Left upper limb pronator drift.
Objective Data
Data Reviewed
Vital Signs / I&O / Oxygen:
Vital Signs
Temp Pulse Resp BP Pulse Ox
99.2 F 70 17 138/71 96
05/05/24 03:46 05/05/24 08:27 05/05/24 05:15 05/05/24 08:05/04/24 20:58
Intake and Output
05/04/24 05/05/24 05/06/24
06:59 06:59 06:59
Intake Total 1587.5 / 1700.0 1215.0 / 1215.0
Output Total 1250 / 1250 1475 / 1475
Balance 337.5 / 450.0 -260.0 / -260.0
SaO2 96
Nasal Cannula flow liters per 2
minute
Physical Exam
General: Comfortable
HEENT: Normocephalic and Anicteric
Cardiovascular: Regular Rhythm
Respiratory: Clear
GI: Soft
Neurology: Awake, Alert and Oriented
Labs/Micro/Reports
Lab Data
05/05/24 04:22
05/05/24 04:22
--- NOTE | 2024-05-05 10:45 | PTCARENOTE ---
Pt assisted OOB to chair to eat breakfast. Hygiene completed. No new complaints received or changes noted from previous assessment findings. Using urinal to void.
--- NOTE | 2024-05-05 10:50 | W.PN.HOSP.TC ---
Today's Communication/Plan
-
wean nicardipine gtt
trend cr
hold eliquis
PT/OT
ICU recs
neurology recs
Assessment / Plan
Assessment / Plan
General: Comfortable and Conversant (Noted slurred speech)
HEENT: Anicteric and Moist mucous membranes
Respiratory: Clear and Non Labored Respirations
Cardiac: S1/S2 and Regular Rhythm
GI: Soft and Non Tender
Musculoskeletal: No Clubbing, No Cyanosis and No Edema
Skin: Warm and Dry
Neuro: Awake, Alert, Slurred Speech (Due to left facial weakness), Facial Droop (Left) and Other (Left upper extremity drift)
Psych: Calm
Intracranial Hemorrhage likely secondary to noncompliance with uncontrolled blood pressure/drug abuse/possibility of exacerbated with Eliquis
-Patient received K-Centra in ED
-Consult Neurology and Neurosurgery
-Monitor Neuro-checks
-Hold antiplatelets and anticoagulants and restart pending clearance from neurology and neurosurgery
-CT angio head and neck negative for aneurysm
-A1c 6.2. LDL 87. Start Lipitor.
-Surveillance head CT with stable hemorrhagic site with mild edema.
-MRI brain with stable subacute right basal ganglia/thalamic hemorrhage. No evidence for underlying mass/enhancement. Moderate T2/FLAIR hyperintense foci within the periventricular and deep subcortical white matter, greater than expected for age.
Differential includes advanced chronic small vessel changes, demyelinating lesions, Lyme disease, chronic migraines or vasculitis.
Hypertensive Emergency
Primary hypertension noncompliant
-Counseled on compliance.
-Restarted home blood pressure meds Cardizem and Lasix and valsartan
-Wean nicardipine drip as tolerated. Blood pressure improving.
Elevated Troponin, likely related to hypertensive emergency/drug abuse leading to possible vasospasms
-Continue to trend troponin to peak
-Chest pain-free. Echo. proBNP 166 patient with morbid obesity.
-Echo with EF of 74%. Normal diastolic function. Moderate concentric LVH. Normal left ventricular size and function. Compared to echo 11/2018 no significant change
Methamphetamine drug abuse
-UDS noted to be positive. Patient states does weekly meth.
Acute kidney injury likely prerenal with significant change in blood pressure
-FENA with pre-renal.
-Seems too early for contrast-induced nephropathy
-
Paroxysmal Atrial Fibrillation
-Hold Eliquis in setting of intracranial hemorrhage
Chronic HFpEF
-Monitor Is&Os and Daily Weights
Hyperlipidemia
-Check fasting lipid panel
Diabetes Mellitus, Type II
-HgbA1c in Jul 2023 was 8.0
-Recheck HgbA1c
-Monitor sugars and continue coverage insulin
Obstructive Sleep Apnea
-Continue CPAP at 10
Morbid Obesity due to Excess Calories
-Affects all aspects of care
DVT Proph: Started on heparin subcu
Code Status:Full Code
Anticipated Discharge: > 48 hours
Subjective/Interval History
-
Date of Service: May 05, 2024
Patient states he usually falls asleep easily
Blood pressure slowly starting to improve
Objective Data
-
Labs:
Laboratory Results
05/05/24
04:22
WBC 12.6 H
Hgb 15.4
Hct 44.7
Plt Count 282
Sodium 142
Potassium 3.6
Chloride 107
Carbon Dioxide 27
BUN 22 H
Creatinine 1.4 H
Glucose 140 H
Calcium 9.3
Vital Signs:
Vital Signs
Temp Pulse Resp BP Pulse Ox
98.0 F 70 17 138/71 96
05/05/24 08:30 05/05/24 08:27 05/05/24 05:15 05/05/24 08:27 05/04/24 20:58
I&O
05/04/24 05/05/24 05/06/24
06:59 06:59 06:59
Intake Total 1587.5 / 1700.0 1215.0 / 1277.5 187.5 / 187.5
Output Total 1250 / 1250 1475 / 1475 300 / 300
Balance 337.5 / 450.0 -260.0 / -197.5 -112.5 / -112.5
Data Reviewed
-
Total Time Spent with Patient (in minutes): 56
--- NOTE | 2024-05-05 12:00 | PTCARENOTE ---
Assumed care of patient, NIHSS as documented in assessment. patient has slight left sided facial droop, is sleepy, oriented and has LUE ataxia. Patient is on room air saturating in mid 90s but does need oxygen when sleeping. lungs clear. Patient
is sinus rhythm on monitor. Cardene gtt infusing through left AC INT. some edema noted RLE. Patient has diet ordered, no issues with swallowing. Using urinal appropriately. Family present at bedside, updated on plan of care.
[2024-05-05 12:44] LABS: Glucose - Point of Care 218 mg/dl (70-99)
--- NOTE | 2024-05-05 13:23 | CM ---
CM following re: discharge planning.
Discussed in Rounds, reviewed pt's chart, met with pt.
Per Rounds meeting, neurological status stable, monitoring BP, continue supportive care.
PT and OT continue to recommend acute rehab. PM&R consult pending.
[facility] therapist following. per liaison, pt is appropriate for acute level of rehab.
D/C plan: [facility].
CM will follow to assist pt with discharge to [facility].
[2024-05-05] MEDS: COREG 3.125 MG PO ×2 (15:16→19:39)
--- NOTE | 2024-05-05 15:27 | PTCARENOTE ---
No change in patient's assessmnent. administered coreg, will attempt to wean down cardene gtt. Patient remains very lethargic, sleepy. wakes up appropriately. Is sleeping in recliner with family at bedside. assisted patient back to bed.
[2024-05-05] MEDS: LIPITOR 40 MG PO (16:48)
[2024-05-05 17:01] LABS: Glucose - Point of Care 144 mg/dl (70-99)
[2024-05-05 22:51] LABS: Glucose - Point of Care 139 mg/dl (70-99)
[2024-05-06] VITALS (34 sets, daily range): BP systolic 123–181; BP diastolic 56–110; PULSE 58–69; O2SAT 95–96; BMI 41.3
[2024-05-06] MEDS: CARDENE 200 IV ×2 (00:46→03:35)
[2024-05-06] MEDS: TRANDATE 10 MG IV ×2 (01:34→09:34)
--- NOTE | 2024-05-06 01:40 | PTCARENOTE ---
Ally degroot PRN labetalol given. pt asleep.
[2024-05-06 04:34] LABS: Blood Urea Nitrogen 17 mg/dl (9-20); Calcium 8.9 mg/dl (8.4-10.2); Carbon Dioxide 30 mmol/L (22-30); Chloride 107 mmol/L (98-107); Estimated Creatinine Clearance 124 ml/min; Glucose 117 mg/dl (70-99); Potassium 3.5 mmol/L (3.5-5.1); Sodium 143 mmol/L (135-145); eGFR > 60.00
[2024-05-06 04:35] LABS: % Basophils 0.5 % (0-2); % Eosinophils 3.2 % (0-6); % Immature Granulocytes 0.3 % (0-0.5); % Lymphocytes 27.1 % (20.5-51.1); % Monocytes 8.6 % (1.7-9.3); % Neutrophils 60.3 % (42.2-75.2); Absolute Basophils 0.1 10^3/uL (0-0.2); Absolute Eosinophils 0.4 10^3/uL (0-0.7); Absolute Neutrophils 6.7 10^3/uL (1.4-6.5); Mean Corpuscular Volume 85.8 fL (80.0-94.0); Nucleated Red Blood Cells % 0 % (-); Platelet Count 254 10^3/uL (130-400); Red Blood Cell Count 4.66 10^6/uL (4.70-6.10); Red Cell Dist. Width 13.2 % (11.5-14.5)
--- NOTE | 2024-05-06 04:53 | PTCARENOTE ---
pt accidently removed IV in left arm where the cardene was infusing. infusion leaked all over his bed. linens changed. Cardene restarted in right arm.
[2024-05-06] MEDS: KCL 20 MEQ PO (06:21)
[2024-05-06 07:54] LABS: Glucose - Point of Care 110 mg/dl (70-99)
[2024-05-06] MEDS: DIOVAN 160 MG PO (08:29)
[2024-05-06] MEDS: COREG 3.125 MG PO ×2 (08:30→20:22)
[2024-05-06] MEDS: HEPARIN 5000 UNITS SC ×3 (08:31→23:47)
[2024-05-06] MEDS: CARDIZEM CD 360 MG PO (08:31)
[2024-05-06] MEDS: NOVOLOG FLEXPEN-LOW RESISTANCE SC ×2 (08:38→17:39)
--- NOTE | 2024-05-06 08:47 | W.PN.INTV ---
Today's Communication / Plan
Recommendations
Will continue to wean patient off of nicardipine in hopes of possible downgrade. Once blood pressure is better controlled off of nicardipine we will move forward with downgrade planning.
Assessment
-
Assessment: Patient is a 54-year-old male who went to bed last night as he usually does but when he woke up at 10 AM he noticed that his left side was feeling 'funny'. Patient has a past medical history of atrial fibrillation hypertension and is on
a DOAC. When he got out of bed he noticed weakness on his left side and subsequently called paramedics. Patient was noted to have a left-sided facial droop associated with left-sided weakness. He was also hypertensive on presentation. He was
traveling and stated that he forgot his medications and therefore missed a dose of his DOAC both yesterday and today. CT conducted on 05/03/2024 showed rounded parenchymal hemorrhage, centered within the right posterior basal ganglia and thalamus
measuring 1.5 cm in diameter indicating a likely etiology of hypertensive hemorrhage. Patient received K-centra in the emergency department. Patient subsequently admitted to ICU for right-sided parenchymal hemorrhage and left-sided weakness.
Chronic Conditions: Uncontrolled hypertension, atrial fibrillation, hyperlipidemia, type 2 diabetes, obstructive sleep apnea on CPAP, morbid obesity
Impression:
#Intracranial hemorrhage
#Hypertensive emergency
#Acute Kidney Injury
#Paroxysmal atrial fibrillation
#Hyperlipidemia
#Type 2 diabetes
#Obstructive sleep apnea on CPAP
#Chronic HFpEF
Plan:
-Patient hemodynamically stable
-Continue to attempt to wean patient off of cardene to downgrade patient
-Possible downgrade to telemetry today if it is determined that patient is nearing his new baseline.
-Continue to hold Eliquis as per neurology. Okay to resume oral anticoagulant 7 days from symptom onset. Start approximately on 05/10/24 if no contraindications.
-Recommend PTOT outpatient
-Recommend supportive counseling and education on methamphetamine abuse
-Neurological status stable overnight
-Patient blood pressure within 130-170 on 05/06/24. Continue with strict blood pressure control in the view of acute kidney injury.
-Will attempt to wean off nicardipine. If successful we will consider downgrading to telemetry.
-Patient remains somnolent but is easily aroused
-Left-sided hemiparesis has improved. Left lower neurological exam normal. Left sided plantarflexion and dorsiflexion strong. No numbness, pain, or tingling noted. Left-sided facial droop shows marginal improvement. Left upper extremity pronator
drift continues.
-Neuro and vascular checks as per protocol
-CT angiogram of head and neck was negative for intracranial aneurysm. Also, right-sided parenchymal hemorrhage is unchanged in size compared to recent prior CT, with unchanged mild adjacent vasogenic edema.
-Repeat CT head showed stable size of the right basal ganglia intraparenchymal hematoma with surrounding vasogenic edema. There is minimal associated local mass effect.
-PT OT evaluation and treat
-Neurology and neurosurgery continues to follow
-Speech eval recommended aspiration precautions including cautions with solids and liquids and vitals at the same time, patient should sit upright and consume food at a slow rate. Speech-language pathology will continue to follow patient
-Supplemental oxygen as needed
-Aspiration precautions
-Chest x-ray showed no acute cardiopulmonary process
-CPAP at [id number] (his home settings) resumed. Will use during naps and at bedtime.
-Avoid sedatives
-Patient recommended to follow-up.
-Poor compliance/poor adherence to medical regimen noted from outpatient records.
-Smoking cessation encouraged.
-Monitor blood pressure
-Labetalol every 6 hours as needed to ensure blood pressure remains around 140
-Oral Lasix restarted
-proBNP was 166 on 05/03
-Troponins trended downwards
-Goal BP approximately 120-140 systolic
-Patient is chest pain free
-Echocardiogram on 05/04/2024 showed moderate concentric left ventricular hypertrophy. Normal left ventricular chamber size. Normal left ventricular systolic function. Left ventricular ejection fraction at 74%. Normal diastolic function. Indexed
left atrial volume was mildly abnormal. No significant change from prior echocardiogram on 11/18/2018
-Acute kidney injury: Possibly due to decrease in blood pressure. Goal is to continue control of blood pressure between 120 and 140.
-Urinalysis was not suspicious for infectious process
-Creatinine is at 1.0. BUN 17 on 05/06
-Consider renal evaluation
-Continue supportive care
-Follow hemoglobin - 14 on 05/06
-Lovenox restarted, repeat CT stable and cleared by neurosurgery
-Follow blood glucose- 117 on 05/06
-Insulin on low sliding scale
-DVT prophylaxis-subcutaneous heparin�cleared by neurosurgery
-Diet as tolerated
Data:
Brain MRI without and with contrast on 05/04/2024: Stable subacute right basal ganglia/thalamic hemorrhage. No evidence for underlying mass/enhancement. Moderate T2/FLAIR hyperintense foci within the periventricular and deep subcortical white matter,
greater than expected for age. Differential includes advanced chronic small vessel changes, demyelinating lesions, Lyme disease, chronic migraines or vasculitis.
Echo on 05/04/14: Moderate concentric left ventricular hypertrophy. Normal left ventricular chamber size. Normal left ventricular systolic function. Left ventricular ejection fraction is 74% by Gray's method. Normal diastolic function. Indexed
LA volume is mildly abnormal (35-41 mL/m2). Since echocardiogram 11/18/2018, there is no significant change.
CXR on 05/03/24: No acute cardiopulmonary process.
Head CT on 05/03/24: 1. Focus of rounded parenchymal hemorrhage, centered within the right posterior basal ganglia and thalamus, measuring 1.5 cm in diameter, with a small amount of adjacent vasogenic edema.
2. Most likely etiology hypertensive hemorrhage.
CT Head & Neck Angio W/wo IV on 05/03/24: 1. Negative for intracranial aneurysm.
2. Right-sided parenchymal hemorrhage is unchanged in size compared to recent prior CT, with unchanged mild adjacent vasogenic edema.
2nd CT Head W/o Iv Contrast on 05/03/24: Stable size of the right basal ganglia intraparenchymal hematoma with surrounding vasogenic edema. There is minimal associated local mass effect.
Subjective Dataa
Subjective Data
Date of Service:
Date of Service: May 06, 2024
Met with patient at the bedside. Patient is calm and pleasant in discussion and offers no complaints at the present time. Patient continues to be somnolent and is easily aroused. He continues to use his CPAP machine during sleep.
Objective Data
Data Reviewed
Vital Signs / I&O / Oxygen:
Vital Signs
Temp Pulse Resp BP Pulse Ox
98.4 F 73 17 167/98 97
05/06/24 07:25 05/06/24 08:31 05/06/24 06:00 05/06/24 08:31 05/06/24 06:00
Intake and Output
05/05/24 05/06/24 05/07/24
06:59 06:59 06:59
Intake Total 1215.0 / 1277.5 1655.0 / 1655.0
Output Total 1475 / 1475 1750 / 1750
Balance -260.0 / -197.5 -95.0 / -95.0
SaO2 97
Nasal Cannula flow liters per 2
minute
Physical Exam
General: Comfortable
HEENT: Normocephalic and Anicteric
Cardiovascular: Regular Rhythm
Respiratory: Clear
GI: Soft
Neurology: Awake, Alert and Oriented
Labs/Micro/Reports
Lab Data
05/06/24 04:02
05/06/24 04:02
[2024-05-06] MEDS: LASIX 80 MG PO (08:50)
[2024-05-06] MEDS: DESENEX/MITRAZOL/ZEASORB 1 APPLIC TOPICAL ×2 (08:50→20:28)
--- NOTE | 2024-05-06 09:00 | PTCARENOTE ---
Pt very drowsy but easily arousable. NIH stroke scale performed at bedside during handoff. Cardene adjustment per worklist. Reluctant to participate in mobility. NSR. Left arm +2 edema, trace edema in lower extremities. Strong LE pulses. Lung
breaths shallow and diminished throughout. + bowel sounds. Urinal at bedside. Patient ambulated to chair upon waking with walker and assist of 2. Safe environment maintained.
--- NOTE | 2024-05-06 10:08 | W.PN.NEURO.1 ---
Subjective/Objective
Subjective Data
Date of Service: May 06, 2024
LLE weakness improving, LUE weakness unchanged
Objective Data
Vital Signs
Temp Pulse Resp BP Pulse Ox
98.4 F 68 17 147/83 91
05/06/24 07:25 05/06/24 09:34 05/06/24 06:00 05/06/24 09:34 05/06/24 09:43
Lab Results
05/06/24 04:02
05/06/24 04:02
PT Cancelled 05/03/24 14:57
INR Cancelled 05/03/24 14:57
APTT Cancelled 05/03/24 14:57
Sodium 143 mmol/L (135-145) 05/06/24 04:02
Potassium 3.5 mmol/L (3.5-5.1) 05/06/24 04:02
BUN 17 mg/dl (9-20) 05/06/24 04:02
Glucose 117 mg/dl (70-99) H 05/06/24 04:02
Calcium 8.9 mg/dl (8.4-10.2) 05/06/24 04:02
Aal-W-Xddzexlsvef Pept 166 pg/ml 05/03/24 18:01
LDL Cholesterol, Calc 87 mg/dl 05/04/24 04:03
Vitamin B12 429 pg/ml (239-931) 05/03/24 12:33
Ur Buprenorphine Cancelled 05/03/24 15:23
Ur Buprenorphine Negative (Negative) 05/03/24 15:23
Patient Allergies
lisinopril [Lisinopril] Adverse Reaction (Intermediate, Verified 05/03/24 14:16)
'my heart went crazy'
Physical Exam
-
General: No Apparent Distress
Eyes: No Ptosis and PERRLA
Psych: Unremarkable
Extended Neurological Exam
Mood & Affect: flat affect
Attention Span & Concentration: remains lethargic but when asked questions he opens his eyes, answeres appropriately
Memory: Unremarkable (AAOx3) and Able to Recall
Tremor: Hand Tremor Absent and Head Tremor Absent
Involuntary Movement: None
Speech: Quantity Unremarkable, Rate of Production Unremarkable
Cranial Nerve II: Left Eye: Pupillary Reactivity Unremarkable, Pupillary Size Unremarkable and Visual Browne Intact
Cranial Nerve II: Right Eye: Pupillary Reactivity Unremarkable, Pupillary Size Unremarkable and Visual Browne Intact
Cranial Nerves III, IV, : Extraocular Movement: Extraocular Movement Full in all Directions
Cranial Nerve V: Facial Sensation: Intact to Light Touch
Cranial Nerve VII: Facial Symmetry: Reduced (left facial droop)
Cranial Nerve VIII: Hearing: Unremarkable Hearing to Normal Conversational Volume
Cranial Nerves IX, X: Palate Movement: Palate Elevation Symmetric
Cranial Nerve XI: Shoulder Shrug: Reduced on Left
Cranial Nerve XII: Tongue Protrusion: Midline
Muscle Strength, Overall: Reduced on Left (LUE 3+/5, LLE 5-/5); full on right
Pronator Drift: Drift in Left Upper Extremity and Drift in Left Lower Extremity
Touch Sensation: Double Simultaneous Stimulation Unremarkable
Coordination: Negative Qtzemi-sdek-ejjvci Testing Unremarkable (LUE ataxia)
Babinski Sign: Absent Bilaterally
Neuro Assessment/Plan
Assessment
This is a 54-year-old right-handed male with a PMH of Afib (Eliquis), HTN, HFpEF, and HARLAN (cpap) who presented to on 05/03/24 with report of abrupt onset of left arm and leg weakness with questionable decline in mental status and CT of head
finding of right posterior basal ganglia and thalamic intraparenchymal hemorrhage with a small amount of vasogenic edema as well as accelerated hypertension as the patient admits to having missed medication dosing 1 day ago. +Methamphetamine on
arrival.
-CT head 05/03/24 1230: Focus of rounded parenchymal hemorrhage, centered within the right posterior basal ganglia and thalamus, measuring 1.5 cm in diameter, with a small amount of adjacent vasogenic edema. Most likely etiology hypertensive
hemorrhage.
-CT Head 05/03/24 1830: Stable size of the right basal ganglia intraparenchymal hematoma with surrounding vasogenic edema. There is minimal associated local mass effect.
-CT Head 05/04/24 at 1030: Stable intraparenchymal hemorrhage.
-CTA head/neck 05/03/24: Negative for intracranial aneurysm. Right-sided parenchymal hemorrhage is unchanged in size compared to recent prior CT, with unchanged mild adjacent vasogenic edema.
-MRI brain 05/04/24: Stable subacute right basal ganglia/thalamic hemorrhage. No evidence for underlying mass/enhancement. Moderate T2/FLAIR hyperintense foci within the periventricular and deep subcortical white matter, greater than expected for
age. Differential includes advanced chronic small vessel changes, demyelinating lesions, Lyme disease, chronic migraines or vasculitis.
Plan
-Hold Eliquis. Per Neurosurgery, okay to resume OAC 7 days from symptom onset, 05/10/24.
-Strict blood pressure control, SBP goal 120-140.
-Monitor on telemetry. If BP remains stable can be transferredout of the ICU today.
-Per Neurosurgery, okay to monitor patient at , will need to transfer patient urgently if there is a change in mental status.
-NIHSS and neurological checks per unit guidelines.
-Provide patient with stroke education packet.
-LDL goal <70. LDL is 87. Initiate atorvastatin 40mg daily.
-Goal normoglycemia, hbA1c is 6.2.
-DVT prophylaxis, okay to resume subcutaneous DVT prophylaxis today as CT head imaging is stable, per Neurosurgery.
-PT/OT/ST evaluations.
-No driving. Will re-evaluate this at follow-up appt with Neurology in about 4 weeks. Will likely need driving eval by OT.
Critical care time 30 mins
Neurology will sign off. Please call if any further questions.
Today's Communication / Plan
-
bp control
--- NOTE | 2024-05-06 10:33 | W.PN.HOSP.TC ---
Today's Communication/Plan
-
adjust bp med
wean off nicardipine
hold eliquis
pt/ot
increase diovan if needed
Assessment / Plan
Assessment / Plan
General: Comfortable and Conversant (Noted slurred speech)
HEENT: Anicteric and Moist mucous membranes
Respiratory: Dec bs
Cardiac: S1/S2 and Regular Rhythm
GI: Soft and Non Tender
Musculoskeletal: No Clubbing, No Cyanosis and No Edema
Skin: Warm and Dry
Neuro: Awake, Alert, Slurred Speech (Due to left facial weakness), Facial Droop (Left) and Other (Left upper extremity drift)
Psych: Calm
Intracranial Hemorrhage likely secondary to noncompliance with uncontrolled blood pressure/drug abuse/possibility of exacerbated with Eliquis
-Patient received K-Centra in ED
-Monitor Neuro-checks
-Hold antiplatelets and anticoagulants and restart pending clearance from neurology and neurosurgery. Per neurosurgery okay to restart Eliquis on 05/10/[address]
-[address] angio head and neck negative for aneurysm
-A1c 6.2. LDL 87. Started Lipitor.
-Surveillance head CT with stable hemorrhagic site with mild edema.
-MRI brain with stable subacute right basal ganglia/thalamic hemorrhage. No evidence for underlying mass/enhancement. Moderate T2/FLAIR hyperintense foci within the periventricular and deep subcortical white matter, greater than expected for age.
Differential includes advanced chronic small vessel changes, demyelinating lesions, Lyme disease, chronic migraines or vasculitis.
-Per neurology-no driving till seen by them in office. Patient informed
Hypertensive Emergency
Primary hypertension noncompliant
-Counseled on compliance.
-Restarted home blood pressure meds Cardizem and Lasix and valsartan. If needed Cr wnl can increased valsartan to 320mg
-Coreg low dose added.
-Wean nicardipine drip as tolerated. Blood pressure improving 142/56
Elevated Troponin, likely related to hypertensive emergency/drug abuse leading to possible vasospasms
-Continue to trend troponin to peak
-Chest pain-free. Echo. proBNP 166 patient with morbid obesity.
-Echo with EF of 74%. Normal diastolic function. Moderate concentric LVH. Normal left ventricular size and function. Compared to echo 11/2018 no significant change
Methamphetamine drug abuse
-UDS noted to be positive. Patient states does weekly meth.
Acute kidney injury likely prerenal with significant change in blood pressure
-FENA with pre-renal.
-Seems too early for contrast-induced nephropathy
-Cr downtrended and wnl. Trend bmp.
Paroxysmal Atrial Fibrillation
-Hold Eliquis in setting of intracranial hemorrhage
Chronic HFpEF
-Monitor Is&Os and Daily Weights
Hyperlipidemia
-Check fasting lipid panel
Diabetes Mellitus, Type II
-HgbA1c in Jul 2023 was 8.0
-Recheck HgbA1c at 6.2
-Monitor sugars and continue coverage insulin
Obstructive Sleep Apnea
-Continue CPAP at 10
Morbid Obesity due to Excess Calories
-Affects all aspects of care
DVT Proph: Started on heparin subcu
Code Status:Full Code
PT/OT-Acute rehab on dc.
Anticipated Discharge: > 48 hours
Subjective/Interval History
-
Date of Service: May 06, 2024
sitting in chair
tolerating breakfast
Objective Data
-
Labs:
Laboratory Results
05/06/24
04:02
WBC 11.0 H
Hgb 14.0
Hct 40.0
Plt Count 254
Sodium 143
Potassium 3.5
Chloride 107
Carbon Dioxide 30
BUN 17
Creatinine 1.0
Glucose 117 H
Calcium 8.9
Vital Signs:
Vital Signs
Temp Pulse Resp BP Pulse Ox
98.4 F 68 17 147/83 91
05/06/24 07:25 05/06/24 09:34 05/06/24 06:00 05/06/24 09:34 05/06/24 09:43
I&O
05/05/24 05/06/24 05/07/24
06:59 06:59 06:59
Intake Total 1215.0 / 1277.5 1655.0 / 1655.0 37.5 / 37.5
Output Total 1475 / 1475 1750 / 1750
Balance -260.0 / -197.5 -95.0 / -95.0 37.5 / 37.5
Data Reviewed
-
Total Time Spent with Patient (in minutes): 58
--- NOTE | 2024-05-06 11:09 | PTCARENOTE ---
Ally gtt off. New goal Systolic< [address] Jalloh. HF packet given to pt at bedside.
[2024-05-06 11:56] LABS: Glucose - Point of Care 154 mg/dl (70-99)
[2024-05-06] MEDS: NOVOLOG FLEXPEN-LOW RESISTANCE 1 UNITS SC (12:33)
--- NOTE | 2024-05-06 12:42 | PTCARENOTE ---
Pt reassessed, ambulated in the hallway with PT. No physical changes, Cardene gtt remains off. Will continue to monitor
--- NOTE | 2024-05-06 15:12 | CM ---
CM following re: discharge planning.
Discussed in Rounds, reviewed pt's chart, met with pt.
Per Rounds meeting, monitoring BP, not completely controlled, continue supportive care and pt will be downgraded from ICU level of care.
PT and OT continue to recommend acute rehab. PM&R consult pending.
[facility] following. Per liaison, pt is appropriate for acute level of rehab.
D/C plan: [facility].
CM will follow to assist pt with discharge to [facility].
--- NOTE | 2024-05-06 16:45 | PTCARENOTE ---
assessments per work list. placed on CPAP as patient napping post ultrasound. Dr Carr notified of results by radiologist per [facility] report. call kelly in reach
[2024-05-06 17:26] LABS: Glucose - Point of Care 91 mg/dl (70-99)
[2024-05-06] MEDS: LIPITOR 40 MG PO (17:43)
[2024-05-06 21:40] LABS: Glucose - Point of Care 103 mg/dl (70-99)
--- NOTE | 2024-05-06 22:34 | PTCARENOTE ---
pt arrived in bed from ICU, AOOx3, VS stable. no complaints of pain. NIH performed with dayshift RN, score of 4. oriented patient to floor, call kelly within reach. plan of care ongoing.
[2024-05-07] VITALS (9 sets, daily range): BP systolic 145–165; BP diastolic 71–90; PULSE 64–70; BMI 41.2
[2024-05-07 06:56] LABS: Blood Urea Nitrogen 15 mg/dl (9-20); Calcium 9.4 mg/dl (8.4-10.2); Carbon Dioxide 31 mmol/L (22-30); Chloride 105 mmol/L (98-107); Estimated Creatinine Clearance 124 ml/min; Glucose 112 mg/dl (70-99); Potassium 3.6 mmol/L (3.5-5.1); Sodium 144 mmol/L (135-145); eGFR > 60.00
[2024-05-07 08:15] LABS: Glucose - Point of Care 111 mg/dl (70-99)
[2024-05-07] MEDS: NOVOLOG FLEXPEN-LOW RESISTANCE SC ×3 (09:03→17:26)
[2024-05-07] MEDS: COREG 3.125 MG PO ×2 (09:04→20:23)
[2024-05-07] MEDS: CARDIZEM CD 360 MG PO (09:04)
[2024-05-07] MEDS: LASIX 80 MG PO (09:04)
[2024-05-07] MEDS: HEPARIN 5000 UNITS SC ×3 (09:04→23:38)
[2024-05-07] MEDS: DIOVAN 160 MG PO (09:04)
[2024-05-07] MEDS: DESENEX/MITRAZOL/ZEASORB 1 APPLIC TOPICAL ×2 (09:09→20:35)
--- NOTE | 2024-05-07 11:41 | W.PN.HOSP.TC ---
Today's Communication/Plan
-
Await PMNR eval
Increase Diovan
Assessment / Plan
Assessment / Plan
General: Comfortable and Conversant (Noted slurred speech)
HEENT: Anicteric and Moist mucous membranes
Respiratory: Dec bs
Cardiac: S1/S2 and Regular Rhythm
GI: Soft and Non Tender
Musculoskeletal: No Clubbing, No Cyanosis and No Edema, left upper extremity swelling
Skin: Warm and Dry
Neuro: Awake, Alert, Slurred Speech (Due to left facial weakness), Facial Droop (Left) and Other (Left upper extremity drift)
Psych: Calm
Intracranial Hemorrhage likely secondary to noncompliance with uncontrolled blood pressure/drug abuse/possibility of exacerbated with Eliquis
-Patient received K-Centra in ED
-Monitor Neuro-checks
-Hold antiplatelets and anticoagulants and restart pending clearance from neurology and neurosurgery. Per neurosurgery okay to restart Eliquis on 05/10/24
-CT angio head and neck negative for aneurysm
-A1c 6.2. LDL 87. Started Lipitor.
-Surveillance head CT with stable hemorrhagic site with mild edema.
-MRI brain with stable subacute right basal ganglia/thalamic hemorrhage. No evidence for underlying mass/enhancement. Moderate T2/FLAIR hyperintense foci within the periventricular and deep subcortical white matter, greater than expected for age.
Differential includes advanced chronic small vessel changes, demyelinating lesions, Lyme disease, chronic migraines or vasculitis.
-Per neurology-no driving till seen by them in office. Patient informed
Hypertensive Emergency
Primary hypertension noncompliant and with meth abuse probably blood pressure elevated for prolonged period of time.
-Counseled on compliance.
-Restarted home blood pressure meds Cardizem and Lasix and valsartan. Valsartan increased to 240mg
-Coreg low dose added.
-off nicardipine gtt.
# Occlusive clot in the cephalic vein
-IV removed. Eventually will be started on Eliquis. Recommended to elevate left upper extremity.
Elevated Troponin, likely related to hypertensive emergency/drug abuse leading to possible vasospasms
-Chest pain-free. Echo. proBNP 166 patient with morbid obesity.
-Echo with EF of 74%. Normal diastolic function. Moderate concentric LVH. Normal left ventricular size and function. Compared to echo 11/2018 no significant change
Methamphetamine drug abuse
-UDS noted to be positive. Patient states does weekly meth. Counseled on complete cessation with uncontrolled blood pressure and intracranial hemorrhage
Acute kidney injury likely prerenal with significant change in blood pressure
-FENA with pre-renal.
-Seems too early for contrast-induced nephropathy
-Cr downtrended and wnl. Trend bmp.
Paroxysmal Atrial Fibrillation
-Hold Eliquis in setting of intracranial hemorrhage
Chronic HFpEF
-Monitor Is&Os and Daily Weights
Hyperlipidemia
-Check fasting lipid panel
Diabetes Mellitus, Type II
-HgbA1c in Jul 2023 was 8.0
-Recheck HgbA1c at 6.2
-Monitor sugars and continue coverage insulin
Obstructive Sleep Apnea
-Continue CPAP at 10
Morbid Obesity due to Excess Calories
-Affects all aspects of care
DVT Proph: Started on heparin subcu
Code Status:Full Code
PT/OT-Acute rehab on dc. PMNR consulted
Anticipated Discharge: Within 24 hours
Subjective/Interval History
-
Date of Service: May 07, 2024
tx out of ICU
Mild LUE swelling
denies headache
Objective Data
-
Labs:
Laboratory Results
05/07/24
05:51
Sodium 144
Potassium 3.6
Chloride 105
Carbon Dioxide 31 H
BUN 15
Creatinine 1.0
Glucose 112 H
Calcium 9.4
Vital Signs:
Vital Signs
Temp Pulse Resp BP Pulse Ox
98 F 70 20 159/77 96
05/07/24 11:29 05/07/24 11:29 05/07/24 11:29 05/07/24 11:29 05/07/24 11:29
I&O
05/06/24 05/07/24 05/08/24
06:59 06:59 06:59
Intake Total 1655.0 / 1655.0 1392.5 / 1392.5
Output Total 1750 / 1750 2800 / 2800
Balance -95.0 / -95.0 -1407.5 / -1407.5
Data Reviewed
-
Total Time Spent with Patient (in minutes): 56
[2024-05-07 12:03] LABS: Glucose - Point of Care 140 mg/dl (70-99)
[2024-05-07] MEDS: DIOVAN 80 MG PO (12:13)
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
--- NOTE | 2024-05-07 16:07 | CM ---
CM reviewed with Hospitalist, patient likely for discharge tomorrow. PMR consult recommending Acute Rehab. CM spoke with patients insurance ([facility] ), pending reference number [id number], faxed clinicals to [phone]. CM
provided insurance with office number ([phone]), for auth approval pending clinical review. Update to [facility]. CM will continue to follow for all discharge planning needs.
Plan; [facility] pending auth, update [facility] ([phone]) once auth received
[2024-05-07 16:45] LABS: Glucose - Point of Care 95 mg/dl (70-99)
[2024-05-07] MEDS: LIPITOR 40 MG PO (17:26)
[2024-05-07] MEDS: TRANDATE 10 MG IV (17:47)
[2024-05-07 21:25] LABS: Glucose - Point of Care 106 mg/dl (70-99)
[2024-05-08] VITALS (13 sets, daily range): BP systolic 145–180; BP diastolic 73–111; PULSE 64–68; O2SAT 97; BMI 39.6
[2024-05-08] MEDS: TRANDATE 10 MG IV ×3 (00:23→13:27)
[2024-05-08] MEDS: TYLENOL 650 MG PO ×3 (03:05→19:31)
[2024-05-08 07:45] LABS: Glucose - Point of Care 117 mg/dl (70-99)
[2024-05-08 08:48] LABS: Blood Urea Nitrogen 19 mg/dl (9-20); Calcium 9.3 mg/dl (8.4-10.2); Carbon Dioxide 30 mmol/L (22-30); Chloride 103 mmol/L (98-107); Estimated Creatinine Clearance 122 ml/min; Glucose 109 mg/dl (70-99); Potassium 3.7 mmol/L (3.5-5.1); Sodium 142 mmol/L (135-145); eGFR > 60.00
[2024-05-08] MEDS: NOVOLOG FLEXPEN-LOW RESISTANCE SC ×2 (09:31→17:26)
[2024-05-08] MEDS: LASIX 80 MG PO (09:32)
[2024-05-08] MEDS: DIOVAN 240 MG PO (09:32)
[2024-05-08] MEDS: CARDIZEM CD 360 MG PO (09:32)
[2024-05-08] MEDS: COREG 3.125 MG PO ×2 (09:32→20:42)
[2024-05-08] MEDS: HEPARIN 5000 UNITS SC ×3 (09:33→23:53)
[2024-05-08] MEDS: DESENEX/MITRAZOL/ZEASORB 1 APPLIC TOPICAL ×2 (09:35→20:43)
--- NOTE | 2024-05-08 11:08 | W.PN.HOSP.TC ---
Today's Communication/Plan
-
await placement to PMR
monitor BP and adjust meds
Assessment / Plan
Assessment / Plan
General: Comfortable and Conversant (Noted slurred speech)
HEENT: Anicteric and Moist mucous membranes
Respiratory: Dec bs
Cardiac: S1/S2 and Regular Rhythm
GI: Soft and Non Tender
Musculoskeletal: No Clubbing, No Cyanosis and No Edema, left upper extremity swelling
Skin: Warm and Dry
Neuro: Awake, Alert, Slurred Speech (Due to left facial weakness), Facial Droop (Left) and Other (Left upper extremity drift)
Psych: Calm
Intracranial Hemorrhage likely secondary to noncompliance with uncontrolled blood pressure/drug abuse/possibility of exacerbated with Eliquis
-Patient received K-Centra in ED
-Monitor Neuro-checks
-Hold antiplatelets and anticoagulants and restart pending clearance from neurology and neurosurgery. Per neurosurgery okay to restart Eliquis on 05/10/24
-CT angio head and neck negative for aneurysm
-A1c 6.2. LDL 87. Started Lipitor.
-Surveillance head CT with stable hemorrhagic site with mild edema.
-MRI brain with stable subacute right basal ganglia/thalamic hemorrhage. No evidence for underlying mass/enhancement. Moderate T2/FLAIR hyperintense foci within the periventricular and deep subcortical white matter, greater than expected for age.
Differential includes advanced chronic small vessel changes, demyelinating lesions, Lyme disease, chronic migraines or vasculitis.
-Per neurology-no driving till seen by them in office. Patient informed
Hypertensive Emergency
Primary hypertension noncompliant and with meth abuse probably blood pressure elevated for prolonged period of time.
-Counseled on compliance.
-Restarted home blood pressure meds Cardizem and Lasix and valsartan. Valsartan increased to 240mg-increase further if needed.
-Coreg low dose added.
-off nicardipine gtt.
# Occlusive clot in the cephalic vein
-IV removed. Eventually will be started on Eliquis. Recommended to elevate left upper extremity.
Elevated Troponin, likely related to hypertensive emergency/drug abuse leading to possible vasospasms
-Chest pain-free. Echo. proBNP 166 patient with morbid obesity.
-Echo with EF of 74%. Normal diastolic function. Moderate concentric LVH. Normal left ventricular size and function. Compared to echo 11/2018 no significant change
Methamphetamine drug abuse
-UDS noted to be positive. Patient states does weekly meth. Counseled on complete cessation with uncontrolled blood pressure and intracranial hemorrhage
Acute kidney injury likely prerenal with significant change in blood pressure
-FENA with pre-renal.
-Seems too early for contrast-induced nephropathy
-Cr downtrended and wnl. Trend bmp.
Paroxysmal Atrial Fibrillation
-Hold Eliquis in setting of intracranial hemorrhage
Chronic HFpEF
-Monitor Is&Os and Daily Weights
Hyperlipidemia
-statin started
Diabetes Mellitus, Type II
-HgbA1c in Jul 2023 was 8.0
-Recheck HgbA1c at 6.2
-Monitor sugars and continue coverage insulin
Obstructive Sleep Apnea
-Continue CPAP at 10
Morbid Obesity due to Excess Calories
-Affects all aspects of care
DVT Proph: Started on heparin subcu
Code Status:Full Code
PT/OT-Acute rehab on dc. PMNR consulted
Anticipated Discharge: Within 24 hours
Subjective/Interval History
-
Date of Service: May 08, 2024
seen on CPAP
no complaints
Objective Data
-
Labs:
Laboratory Results
05/08/24
07:31
Sodium 142
Potassium 3.7
Chloride 103
Carbon Dioxide 30
BUN 19
Creatinine 1.0
Glucose 109 H
Calcium 9.3
Vital Signs:
Vital Signs
Temp Pulse Resp BP Pulse Ox
98.3 F 68 20 145/93 94
05/08/24 07:30 08/31/24 07:30 05/08/24 07:30 05/08/24 07:30 05/08/24 07:30
I&O
05/07/24 05/08/24 05/09/24
06:59 06:59 06:59
Intake Total 1392.5 / 1392.5 2099 / 2099
Output Total 2800 / 2800 4195 / 4195
Balance -1407.5 / -1407.5 -2094 / -2094
[2024-05-08 11:53] LABS: Glucose - Point of Care 166 mg/dl (70-99)
[2024-05-08] MEDS: DIOVAN 80 MG PO (13:22)
[2024-05-08] MEDS: NOVOLOG FLEXPEN-LOW RESISTANCE 1 UNITS SC (13:29)
[2024-05-08] MEDS: FLUSH (NSS) 1 FLUSH IV (13:29)
--- NOTE | 2024-05-08 13:40 | CM ---
CM attempted to obtain acute rehab authorization from [facility]. Initially I received a message that [facility] was closed. I called again and spoke with Dorota on the 'urgent request' line. Melony advised that the case has not been
loaded into the system yet, and we would need to give it 'a few days'. No other options offered; Acute Rehab authorization not able to be obtained at this time.
Plan: CM to follow up with [facility] prior authorization for acute rehab authorization. The offices are closed until Friday and the 'urgent needs' line is unable to provide assistance. CM will try again in AM.
[2024-05-08 17:00] LABS: Glucose - Point of Care 97 mg/dl (70-99)
[2024-05-08] MEDS: LIPITOR 40 MG PO (17:26)
[2024-05-08 21:20] LABS: Glucose - Point of Care 122 mg/dl (70-99)
[2024-05-09] VITALS (11 sets, daily range): BP systolic 158–184; BP diastolic 86–116; PULSE 69; O2SAT 98; BMI 39.6
[2024-05-09] MEDS: TRANDATE 10 MG IV ×3 (00:07→12:41)
[2024-05-09] MEDS: APRESOLINE 5 MG IV (03:32)
[2024-05-09 08:03] LABS: Glucose - Point of Care 111 mg/dl (70-99)
[2024-05-09] MEDS: CARDIZEM CD 360 MG PO (08:38)
[2024-05-09] MEDS: NOVOLOG FLEXPEN-LOW RESISTANCE SC ×3 (08:38→17:27)
[2024-05-09] MEDS: DIOVAN 320 MG PO (08:38)
[2024-05-09] MEDS: APRESOLINE 20 MG PO ×3 (08:38→21:55)
[2024-05-09] MEDS: COREG 3.125 MG PO ×2 (08:39→19:45)
[2024-05-09] MEDS: HEPARIN 5000 UNITS SC ×3 (08:39→23:41)
[2024-05-09] MEDS: LASIX 80 MG PO (08:39)
[2024-05-09] MEDS: DESENEX/MITRAZOL/ZEASORB 1 APPLIC TOPICAL ×2 (08:42→19:46)
--- NOTE | 2024-05-09 11:12 | W.PN.HOSP.TC ---
Today's Communication/Plan
-
Await for insurance authorization
Blood pressure meds adjusted
Continue with as needed BP medication
Continue with out of bed/PT/OT
Assessment / Plan
Assessment / Plan
General: Comfortable and Conversant (Noted slurred speech)
HEENT: Anicteric and Moist mucous membranes
Respiratory: Dec bs
Cardiac: S1/S2 and Regular Rhythm
GI: Soft and Non Tender
Musculoskeletal: No Clubbing, No Cyanosis and No Edema, left upper extremity swelling
Skin: Warm and Dry
Neuro: Awake, Alert, Slurred Speech (Due to left facial weakness), Facial Droop (Left) and Other (Left upper extremity drift)
Psych: Calm
Intracranial Hemorrhage likely secondary to noncompliance with uncontrolled blood pressure/drug abuse/possibility of exacerbated with Eliquis
-Patient received K-Centra in ED
-Monitor Neuro-checks
-Hold antiplatelets and anticoagulants and restart pending clearance from neurology and neurosurgery. Per neurosurgery okay to restart Eliquis on 05/10/24
-CT angio head and neck negative for aneurysm
-A1c 6.2. LDL 87. Started Lipitor.
-Surveillance head CT with stable hemorrhagic site with mild edema.
-MRI brain with stable subacute right basal ganglia/thalamic hemorrhage. No evidence for underlying mass/enhancement. Moderate T2/FLAIR hyperintense foci within the periventricular and deep subcortical white matter, greater than expected for age.
Differential includes advanced chronic small vessel changes, demyelinating lesions, Lyme disease, chronic migraines or vasculitis.
-Per neurology-no driving till seen by them in office. Patient informed
Hypertensive Emergency
Primary hypertension noncompliant and with meth abuse probably blood pressure elevated for prolonged period of time.
-Counseled on compliance.
-Restarted home blood pressure meds Cardizem and Lasix and valsartan. Valsartan increased to 320. Elevated blood pressure and hydralazine added further
-Coreg low dose added.
-off nicardipine gtt.
# Occlusive clot in the cephalic vein
-IV removed. Eventually will be started on Eliquis. Recommended to elevate left upper extremity.
Elevated Troponin, likely related to hypertensive emergency/drug abuse leading to possible vasospasms
-Chest pain-free. Echo. proBNP 166 patient with morbid obesity.
-Echo with EF of 74%. Normal diastolic function. Moderate concentric LVH. Normal left ventricular size and function. Compared to echo 11/2018 no significant change
Methamphetamine drug abuse
-UDS noted to be positive. Patient states does weekly meth. Counseled on complete cessation with uncontrolled blood pressure and intracranial hemorrhage
Acute kidney injury likely prerenal with significant change in blood pressure
-FENA with pre-renal.
-Seems too early for contrast-induced nephropathy
-Cr downtrended and wnl. Trend bmp.
Paroxysmal Atrial Fibrillation
-Hold Eliquis in setting of intracranial hemorrhage
Chronic HFpEF
-Monitor Is&Os and Daily Weights
Hyperlipidemia
-statin started
Diabetes Mellitus, Type II
-HgbA1c in Jul 2023 was 8.0
-Recheck HgbA1c at 6.2
-Monitor sugars and continue coverage insulin
Obstructive Sleep Apnea
-Continue CPAP at 10
Morbid Obesity due to Excess Calories
-Affects all aspects of care
DVT Proph: Started on heparin subcu
Code Status:Full Code
PT/OT-Acute rehab on dc. PMNR consulted
Anticipated Discharge: > 48 hours
Subjective/Interval History
-
Date of Service: May 09, 2024
States did not sleep well last night
States of irritation due to multiple blood pressure checks
Objective Data
-
Vital Signs:
Vital Signs
Temp Pulse Resp BP Pulse Ox
98 F 67 20 174/92 95
05/09/24 08:23 05/09/24 08:23 05/09/24 08:23 05/09/24 08:38 09/01/24 08:23
I&O
05/08/24 05/09/24 05/10/24
06:59 06:59 06:59
Intake Total 2099 1140 / 1140
Output Total 4195 / 4195 1989
Balance -2094 / -2094 - / -
Data Reviewed
-
Total Time Spent with Patient (in minutes): 56
[2024-05-09 12:19] LABS: Glucose - Point of Care 124 mg/dl (70-99)
[2024-05-09] MEDS: FLUSH (NSS) 2 FLUSH IV (12:42)
[2024-05-09] MEDS: LIPITOR 40 MG PO (17:00)
--- NOTE | 2024-05-09 17:01 | CM ---
CM still unable to reach [facility] authorization line today. Advised to call on the 'next business day'.
[2024-05-09 17:13] LABS: Glucose - Point of Care 143 mg/dl (70-99)
[2024-05-09 21:44] LABS: Glucose - Point of Care 106 mg/dl (70-99)
[2024-05-10] VITALS (10 sets, daily range): BP systolic 149–181; BP diastolic 72–104; PULSE 68–73; BMI 39.4
[2024-05-10] MEDS: TRANDATE 10 MG IV ×3 (00:15→12:48)
[2024-05-10] MEDS: APRESOLINE 10 MG IV (02:30)
[2024-05-10] MEDS: APRESOLINE 25 MG PO (04:43)
--- NOTE | 2024-05-10 05:15 | PTCARENOTE ---
Patient's blood pressure elevated, 173/95 HR 69 at 2345. PRN IV labetolol given as ordered at 0015. BP recheck 181/104 HR 67. GASTROENTEROLOGY MANAGER made aware, IV hydralazine ordered and given at 0230. BP remains elevated - 178/95 HR 69. GASTROENTEROLOGY MANAGER notified, ordered PO
hydralazine and given at 0443. Plan of care ongoing.
[2024-05-10 08:13] LABS: Glucose - Point of Care 126 mg/dl (70-99)
[2024-05-10] MEDS: NOVOLOG FLEXPEN-LOW RESISTANCE SC ×3 (08:54→18:14)
[2024-05-10] MEDS: CARDIZEM CD 360 MG PO (09:02)
[2024-05-10] MEDS: LASIX 80 MG PO (09:02)
[2024-05-10] MEDS: DIOVAN 320 MG PO (09:02)
[2024-05-10] MEDS: APRESOLINE 50 MG PO ×3 (09:02→21:00)
[2024-05-10] MEDS: HEPARIN 5000 UNITS SC (09:03)
[2024-05-10] MEDS: COREG 3.125 MG PO ×2 (09:03→20:12)
[2024-05-10] MEDS: DESENEX/MITRAZOL/ZEASORB 1 APPLIC TOPICAL ×2 (09:03→20:13)
--- NOTE | 2024-05-10 10:31 | W.PN.HOSP.TC ---
Today's Communication/Plan
-
await insurance auth
increase hydralazine
bp improved 149/83
Assessment / Plan
Assessment / Plan
General: Comfortable and Conversant (Noted slurred speech-improved
HEENT: Anicteric and Moist mucous membranes
Respiratory: Dec bs
Cardiac: S1/S2 and Regular Rhythm
GI: Soft and Non Tender
Musculoskeletal: No Clubbing, No Cyanosis and No Edema, left upper extremity swelling
Skin: Warm and Dry
Neuro: Awake, Alert, Slurred Speech (Due to left facial weakness), Facial Droop (Left) and Other (Left upper extremity drift)
Psych: Calm
Intracranial Hemorrhage likely secondary to noncompliance with uncontrolled blood pressure/drug abuse/possibility of exacerbated with Eliquis
-Patient received K-Centra in ED
-Monitor Neuro-checks
-Hold antiplatelets and anticoagulants and restart pending clearance from neurology and neurosurgery. Per neurosurgery okay to restart Eliquis on 05/10/24.
-CT angio head and neck negative for aneurysm
-A1c 6.2. LDL 87. Started Lipitor.
-Surveillance head CT with stable hemorrhagic site with mild edema.
-MRI brain with stable subacute right basal ganglia/thalamic hemorrhage. No evidence for underlying mass/enhancement. Moderate T2/FLAIR hyperintense foci within the periventricular and deep subcortical white matter, greater than expected for age.
Differential includes advanced chronic small vessel changes, demyelinating lesions, Lyme disease, chronic migraines or vasculitis.
-Per neurology-no driving till seen by them in office. Patient informed
Hypertensive Emergency
Primary hypertension noncompliant and with meth abuse probably blood pressure elevated for prolonged period of time.
-Counseled on compliance.
-Restarted home blood pressure meds Cardizem and Lasix and valsartan. Valsartan increased to 320.
-Coreg low dose added. Hydralazine dose increased 50mg TID
-off nicardipine gtt.
# Occlusive clot in the cephalic vein
-IV removed. Recommended to elevate left upper extremity. On Eliquis
Elevated Troponin, likely related to hypertensive emergency/drug abuse leading to possible vasospasms
-Chest pain-free. Echo. proBNP 166 patient with morbid obesity.
-Echo with EF of 74%. Normal diastolic function. Moderate concentric LVH. Normal left ventricular size and function. Compared to echo 11/2018 no significant change
Methamphetamine drug abuse
-UDS noted to be positive. Patient states does weekly meth. Counseled on complete cessation with uncontrolled blood pressure and intracranial hemorrhage
Acute kidney injury likely prerenal with significant change in blood pressure
-FENA with pre-renal.
-Seems too early for contrast-induced nephropathy
-Cr downtrended and wnl. Trend bmp.
Paroxysmal Atrial Fibrillation
-Cont carizem and eliquis
Chronic HFpEF
-Monitor Is&Os and Daily Weights
Hyperlipidemia
-statin started
Diabetes Mellitus, Type II
-HgbA1c in Jul 2023 was 8.0
-Recheck HgbA1c at 6.2
-Monitor sugars and continue coverage insulin
Obstructive Sleep Apnea
-Continue CPAP at 10
Morbid Obesity due to Excess Calories
-Affects all aspects of care
DVT Proph: Started on heparin subcu
Code Status:Full Code
PT/OT-Acute rehab on dc. PMNR consulted
Anticipated Discharge: Within 24 hours
Subjective/Interval History
-
Date of Service: May 10, 2024
no complaints
tolerating diet
denies headache
Objective Data
-
Vital Signs:
Vital Signs
Temp Pulse Resp BP Pulse Ox
98 F 70 16 149/83 95
05/10/24 08:00 05/10/24 08:00 05/10/24 08:00 05/10/24 09:02 05/10/24 08:00
I&O
09/01/24 09/02/24 09/03/24
06:59 06:59 06:59
Intake Total 1140 / 1140 1700 / 1700
Output Total 1989 1395 / 1395
Balance -850 / -850 305 / 305
Data Reviewed
-
Total Time Spent with Patient (in minutes): 56
[2024-05-10 12:20] LABS: Glucose - Point of Care 128 mg/dl (70-99)
[2024-05-10] MEDS: FLUSH (NSS) 2 FLUSH IV (12:49)
[2024-05-10] MEDS: TYLENOL 650 MG PO (16:14)
[2024-05-10 17:06] LABS: Glucose - Point of Care 86 mg/dl (70-99)
--- NOTE | 2024-05-10 17:57 | CM ---
i met with mother marcos at bedside.she is asking for [facility] info where she can apply for money and food for her son who has not been working in a year.i gave her [facility] [place],phone number
[phone].cont to monitor bp.
i have also faxed additional info to [facility] [employer] so hopefully they can reply with an auth.(info on my desk).plan :await insurance auth for [facility].
[2024-05-10] MEDS: LIPITOR 40 MG PO (18:15)
[2024-05-10] MEDS: ELIQUIS 5 MG PO (20:11)
[2024-05-11] VITALS (11 sets, daily range): BP systolic 148–175; BP diastolic 64–98; PULSE 73; O2SAT 97
[2024-05-11] MEDS: TRANDATE 10 MG IV (00:06)
[2024-05-11] MEDS: TYLENOL 650 MG PO ×2 (02:51→20:20)
[2024-05-11] MEDS: APRESOLINE 10 MG IV (03:07)
[2024-05-11 07:23] LABS: Glucose - Point of Care 110 mg/dl (70-99)
[2024-05-11] MEDS: NOVOLOG FLEXPEN-LOW RESISTANCE SC ×2 (08:35→12:04)
[2024-05-11] MEDS: DIOVAN 320 MG PO (08:42)
[2024-05-11] MEDS: ELIQUIS 5 MG PO ×2 (08:43→20:20)
[2024-05-11] MEDS: LASIX 80 MG PO (08:43)
[2024-05-11] MEDS: APRESOLINE 50 MG PO (08:43)
[2024-05-11] MEDS: COREG 3.125 MG PO ×2 (08:43→20:20)
[2024-05-11] MEDS: CARDIZEM CD 360 MG PO (08:43)
[2024-05-11] MEDS: DESENEX/MITRAZOL/ZEASORB 1 APPLIC TOPICAL ×2 (08:44→20:20)
--- NOTE | 2024-05-11 09:04 | CM ---
Addendum entered by Lima Liu 05/11/24 11:29:
Per [facility], patient must be off IV blood pressure medications for 24 hours, can accept tomorrow. Call placed to insurance as patient discharging tomorrow and not today. Per insurance, can fax a letter stating change for admissions date (05/12/24) with
members information, can fax to [phone].
Plan; [facility] tomorrow.
Addendum entered by Lima Liu 05/11/24 09:44:
CM received call from [facility], patient approved 7 days, 05/11-05/18, auth #[id number], fax updates to [phone]. TT to Brock at [facility] and Hospitalist with update.
Original Note:
CM placed call to patients insurance to check status of auth ([facility] ), pending reference number [id number]. CM was informed that insurance is requesting additional information, including PMR consult. CM reports this was faxed
on Friday, confirmed faxed number, will re fax to [phone]. CM will call back to check status of auth. CM will continue to follow for all discharge planning needs.
Plan; [facility], pending auth approval.
[2024-05-11 11:57] LABS: Glucose - Point of Care 128 mg/dl (70-99)
--- NOTE | 2024-05-11 12:18 | W.PN.HOSP.TC ---
Today's Communication/Plan
-
Continue Eliquis.
Increase hydralazine to 100 mg p.o. 3 times daily.
Wean off of IV antihypertensives.
Physical therapy
Pending placement to acute rehab.
Assessment / Plan
Assessment / Plan
Intracranial Hemorrhage likely secondary to noncompliance with uncontrolled blood pressure/drug abuse/possibility of exacerbated with Eliquis
-Patient received K-Centra in ED
-Monitor Neuro-checks
-Hold antiplatelets and anticoagulants and restart pending clearance from neurology and neurosurgery. Per neurosurgery okay to restart Eliquis on 05/10/24.
-CT angio head and neck negative for aneurysm
-A1c 6.2. LDL 87. Started Lipitor.
-Surveillance head CT with stable hemorrhagic site with mild edema.
-MRI brain with stable subacute right basal ganglia/thalamic hemorrhage. No evidence for underlying mass/enhancement. Moderate T2/FLAIR hyperintense foci within the periventricular and deep subcortical white matter, greater than expected for age.
Differential includes advanced chronic small vessel changes, demyelinating lesions, Lyme disease, chronic migraines or vasculitis.
-Per neurology-no driving till seen by them in office. Patient informed
Hypertensive Emergency
Primary hypertension noncompliant and with meth abuse probably blood pressure elevated for prolonged period of time.
-Counseled on compliance.
-Restarted home blood pressure meds Cardizem and Lasix and valsartan. Valsartan increased to 320.
-Coreg low dose added. Increase hydralazine to 100 mg 3 times daily
-off nicardipine gtt.
# Occlusive clot in the cephalic vein
-IV removed. Recommended to elevate left upper extremity. On Eliquis
Elevated Troponin, likely related to hypertensive emergency/drug abuse leading to possible vasospasms
-Chest pain-free. Echo. proBNP 166 patient with morbid obesity.
-Echo with EF of 74%. Normal diastolic function. Moderate concentric LVH. Normal left ventricular size and function. Compared to echo 11/2018 no significant change
Methamphetamine drug abuse
-UDS noted to be positive. Patient states does weekly meth. Counseled on complete cessation with uncontrolled blood pressure and intracranial hemorrhage
Acute kidney injury likely prerenal with significant change in blood pressure
-FENA with pre-renal.
-Seems too early for contrast-induced nephropathy
-Cr downtrended and wnl. Trend bmp.
Paroxysmal Atrial Fibrillation
-Cont carizem and eliquis
Chronic HFpEF
-Monitor Is&Os and Daily Weights
Hyperlipidemia
-statin started
Diabetes Mellitus, Type II
-HgbA1c in Jul 2023 was 8.0
-Recheck HgbA1c at 6.2
-Monitor sugars and continue coverage insulin
Obstructive Sleep Apnea
-Continue CPAP at 10
Morbid Obesity due to Excess Calories
-Affects all aspects of care
DVT Proph: Started on heparin subcu
Code Status:Full Code
PT/OT-Acute rehab on dc. PMNR consulted
Anticipated Discharge: Within 24 hours
Subjective/Interval History
-
Date of Service: May 11, 2024
Objective Data
-
Vital Signs:
Vital Signs
Temp Pulse Resp BP Pulse Ox
97.9 F 75 20 161/86 96
05/11/24 08:10 05/11/24 08:42 05/11/24 08:10 05/11/24 08:42 05/11/24 12:12
I&O
05/10/24 05/11/24 05/12/24
06:59 06:59 06:59
Intake Total 1700 / 1700 240 / 240
Output Total 1395 / 1395 300 / 300 750 / 750
Balance 305 / 305 -60 / -60 -750 / -750
Physical Exam
-
General: Well Developed and No Apparent Distress
HEENT: Normocephalic, Atraumatic and Moist Mucous Membranes
Respiratory: Clear to Auscultation
Cardiac: Regular Rhythm and S1/S2; Negative Murmur, Rub or Gallop
GI: Soft, Nontender, Nondistended and Normal Bowel Sounds; Negative Organomegaly
Rectal: Deferred by Provider
Musculoskeletal: No Clubbing, No Cyanosis and No Edema
Skin: Negative Rash
Neuro: Other (Slurred Speech (Due to left facial weakness), Facial Droop (Left) and Other (Left upper extremity drift))
[2024-05-11] MEDS: APRESOLINE 100 MG PO ×2 (16:27→21:25)
[2024-05-11 16:44] LABS: Glucose - Point of Care 156 mg/dl (70-99)
[2024-05-11] MEDS: NOVOLOG FLEXPEN-LOW RESISTANCE 1 UNITS SC (16:45)
[2024-05-11] MEDS: LIPITOR 40 MG PO (17:02)
[2024-05-11 21:38] LABS: Glucose - Point of Care 96 mg/dl (70-99)
[2024-05-12 03:14] VITALS: BP 157/66
[2024-05-12 06:00] VITALS: BMI 39.4
[2024-05-12 07:07] VITALS: BP 151/70
[2024-05-12 08:07] LABS: Glucose - Point of Care 115 mg/dl (70-99)
[2024-05-12] MEDS: NOVOLOG FLEXPEN-LOW RESISTANCE SC ×3 (09:11→16:29)
[2024-05-12] MEDS: CARDIZEM CD 360 MG PO (09:12)
[2024-05-12] MEDS: COREG 3.125 MG PO (09:12)
[2024-05-12] MEDS: DESENEX/MITRAZOL/ZEASORB 1 APPLIC TOPICAL (09:13)
[2024-05-12] MEDS: LASIX 80 MG PO (09:13)
[2024-05-12] MEDS: ELIQUIS 5 MG PO (09:13)
[2024-05-12] MEDS: DIOVAN 320 MG PO (09:14)
[2024-05-12] MEDS: APRESOLINE 100 MG PO ×2 (09:14→15:23)
[2024-05-12] MEDS: TYLENOL 650 MG PO (09:25)
[2024-05-12 11:30] VITALS: BP 135/58
--- NOTE | 2024-05-12 11:31 | CM ---
Addendum entered by Lima Liu 05/12/24 12:54:
[facility] can accept patient around 2:30 p.m. Nurse updated.
Original Note:
CM placed call to insurance, confirm auth approved 7 days, 05/11-05/18, auth #[id number], fax updates to [phone]. Spoke with Brock from [facility], able to accept patient today, awaiting on time [facility] can accept patient. Nurse and Hospitalist provided
with update. CM will continue to follow for all discharge planning needs.
Plan; [facility]
Report: [phone]
Fax: [phone]
[2024-05-12 11:47] LABS: Glucose - Point of Care 125 mg/dl (70-99)
--- NOTE | 2024-05-12 12:15 | W.DS.TRANS ---
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
-
Discharge Instructions:
Discharge Diagnosis/Procedures Intracranial hemorrhage.
Hypertensive emergency
Diet Low Cholesterol
Instructions:
Stand-Alone Forms:
Changes to Home Medications: Yes
Discharge Medications:
DC Medications w/original date entered in [employer]
furosemide 80 mg tablet 80 mg PO DAILY Fluid Retention/Swelling 11/17/18
diltiazem HCl 360 mg capsule,24 hr,extended release 360 mg PO DAILY Arrhythmia 07/30/23
apixaban 5 mg tablet (Eliquis) 5 mg PO BID Blood Clot Prevention/Tx 05/03/24
atorvastatin 40 mg tablet 40 mg PO QPM #30 tabs 05/12/24
carvedilol 3.125 mg tablet 3.125 mg PO BID #60 tabs 05/12/24
hydralazine 50 mg tablet 100 mg (2 x 50 mg) PO TID #90 tabs 05/12/24
valsartan 80 mg tablet 320 mg (4 x 80 mg) PO DAILY #30 tabs 05/12/24
Home Medication Changes
Valsartan dose increased
Hydralazine, Coreg, statin added
Pending Results: No
[2024-05-12 15:14] VITALS: BP 146/86
[2024-05-12 16:24] LABS: Glucose - Point of Care 124 mg/dl (70-99)
== END 2024-05-12 17:17 | DRG 64 ==
LOC: 4 EAST ACU 14:01
PROVIDERS: Internal Medicine Critical Care Medicine; Physician Assistant Medical; ADMITTING PHYSICIAN Hospitalist; ATTENDING PHYSICIAN Internal Medicine; CONSULT PHYSICIAN Physical Medicine & Rehabilitation; CONSULT PHYSICIAN Psychiatry & Neurology Neurology; EMERGENCY PHYSICIAN Emergency Medicine; OTHER PHYSICIAN Neurological Surgery
PROC: 30283B1 Transfusion of Nonautologous 4-Factor Prothrombin Complex Concentrate into Vein, Percutaneous Approach (ICD-10-PCS; 2024-05-03)
PROC: 5A09357 Assistance with Respiratory Ventilation, Less than 24 Consecutive Hours, Continuous Positive Airway Pressure (ICD-10-PCS; 2024-05-03)
DX: I61.8 Other nontraumatic intracerebral hemorrhage (principal); G93.6 Cerebral edema; G81.94 Hemiplegia, unspecified affecting left nondominant side; I16.1 Hypertensive emergency; I50.32 Chronic diastolic (congestive) heart failure; N17.9 Acute kidney failure, unspecified; D68.32 Hemorrhagic disorder due to extrinsic circulating anticoagulants; I82.612 Acute embolism and thrombosis of superficial veins of left upper extremity; Z68.41 Body mass index [BMI] 40.0-44.9, adult; R29.707 NIHSS score 7; R47.81 Slurred speech; R29.810 Facial weakness; E66.01 Morbid (severe) obesity due to excess calories; F17.290 Nicotine dependence, other tobacco product, uncomplicated; G47.33 Obstructive sleep apnea (adult) (pediatric); I11.0 Hypertensive heart disease with heart failure; E78.5 Hyperlipidemia, unspecified; E11.9 Type 2 diabetes mellitus without complications; T46.5X6A Underdosing of other antihypertensive drugs, initial encounter; R79.89 Other specified abnormal findings of blood chemistry; F15.10 Other stimulant abuse, uncomplicated; E78.1 Pure hyperglyceridemia; I48.0 Paroxysmal atrial fibrillation; K76.0 Fatty (change of) liver, not elsewhere classified; Z74.09 Other reduced mobility; Z79.01 Long term (current) use of anticoagulants; Z91.138 Patient's unintentional underdosing of medication regimen for other reason; Z88.8 Allergy status to other drugs, medicaments and biological substances; Z79.899 Other long term (current) drug therapy
CPT/HCPCS: 70450; 70496; 70498; 70553; 71045; 80048; 80053; 80061; 80306; 80307; 81003; 81015; 82077; 82570; 82607; 82728; 82746; 82962; 83036; 83735; 83880; 84300; 84443; 84484; 85025; 85027; 85610; 85652; 85730; 92507; 92523; 92526; 92610; 93005; 93306; 93971; 94660; 96374; 96375; 97112; 97116; 97163; 97167; 97530; 97535; 99285; A9575; J7168; Q9967

== ENCOUNTER 2024-06-07 10:30 | Outpatient (RCR) | payer OTHER, SELFPAY | END 2024-06-07 23:59 | disposition home or self-care (01) | LOC: RST 10:30 | PROVIDERS: ATTENDING PHYSICIAN Physical Medicine & Rehabilitation | DX: I69.318 Other symptoms and signs involving cognitive functions following cerebral infarction (principal); I69.392 Facial weakness following cerebral infarction; I69.354 Hemiplegia and hemiparesis following cerebral infarction affecting left non-dominant side; R26.89 Other abnormalities of gait and mobility; I69.398 Other sequelae of cerebral infarction; I69.322 Dysarthria following cerebral infarction; Z73.6 Limitation of activities due to disability | CPT/HCPCS: 96125; 97163; 97167; 97537 ==

== ENCOUNTER 2024-06-23 17:10 | Emergency (ER) | payer OTHER, SELFPAY ==
[2024-06-23 17:10] VITALS: BMI 38.2
[2024-06-23 17:14] VITALS: BP 146/88
[2024-06-23 17:16] LABS: Glucose - Point of Care 140 mg/dl (70-99)
[2024-06-23 17:27] LABS: % Basophils 0.7 % (0-2); % Eosinophils 2.3 % (0-6); % Immature Granulocytes 0.3 % (0-0.5); % Lymphocytes 25.1 % (20.5-51.1); % Monocytes 9.5 % (1.7-9.3); % Neutrophils 62.1 % (42.2-75.2); Absolute Basophils 0.1 10^3/uL (0-0.2); Absolute Eosinophils 0.2 10^3/uL (0-0.7); Absolute Lymphocytes 2.5 10^3/uL (1.2-3.4); Absolute Neutrophils 6.2 10^3/uL (1.4-6.5); Hematocrit 42.1 % (39.0-52.0); Hemoglobin 14.6 g/dL (13.0-18.0); Mean Corp Hgb Conc. 34.7 g/dL (33.0-37.0); Mean Corpuscular Hgb 29.7 pg (27.0-31.0); Mean Corpuscular Volume 85.7 fL (80.0-94.0); Mean Platelet Volume 9.4 fL (7.4-10.4); Nucleated Red Blood Cells % 0 % (-); Platelet Count 286 10^3/uL (130-400); Red Blood Cell Count 4.91 10^6/uL (4.70-6.10); Red Cell Dist. Width 13.4 % (11.5-14.5)
[2024-06-23 17:51] LABS: ALT (SGPT) 23 U/L (0-50); AST (SGOT) 22 U/L (17-59); Albumin 4.8 g/dl (3.5-5.0); Alkaline Phosphatase 68 U/L (38-126); Blood Urea Nitrogen 19 mg/dl (9-20); Calcium 10.1 mg/dl (8.4-10.2); Carbon Dioxide 28 mmol/L (22-30); Chloride 102 mmol/L (98-107); Glucose 132 mg/dl (70-99); Potassium 3.3 mmol/L (3.5-5.1); Sodium 143 mmol/L (135-145); Total Bilirubin 0.8 mg/dl (0.2-1.3); Total Protein 7.1 g/dl (6.3-8.2); eGFR > 60.00
[2024-06-23 19:46] VITALS: BP 138/78
[2024-06-23 20:00] VITALS: BP 154/77
[2024-06-23 20:26] LABS: COVID-19 Antigen Negative (Negative)
--- NOTE | 2024-06-23 20:55 | ED.GENMED ---
History of Present Illness
General
Chief Complaint: Weakness
Source: patient
Exam Limitations: none
Time Seen by Provider: 06/23/24 19:34
History of Present Illness
History of Present Illness:
This is a 54 year old male that comes in with c/o fatigue. States that for the past week he has been nauseated and very tired. States that he felt like he was going backward in his recovery. States that he had his stroke on May 01. States that
he has a slight headache. Denies any fever, chills, chest pain, SOB, abd pain, vomiting, diarrhea, dizziness, urinary burning.
Past History
Past History
ED Past Medical History: Arrthythmia (Paroxysmal atrial fibrillation), CVA ( with left sided deficit slight), HTN, NIDDM and Other (Sleep apnea, Back and neck pain, )
ED Past Surgical History: Cardiac (Ablation) and Orthopedic (Reconstructive surgery due to trauma to his right lower extremity, Pin left foot)
Social History
Tobacco: Smoker
Alcohol: Occasional
Drug: None
Personal:
Living: with family
Family History
Family History: Hypertension
Review of Systems
Review of Systems
All Other Systems: ROS reviewed and negative except as documented in HPI and ROS
Constitutional: Reports fatigue; Denies fever or chills
EENT: Reports no symptoms
Respiratory: Reports no symptoms; Denies cough or trouble breathing
Cardiac: Reports no symptoms; Denies chest pain
ABD/GI: Reports nausea; Denies abdominal pain, vomiting or diarrhea
: Reports no symptoms; Denies dysuria, frequency or urgency
Musculoskeletal: Reports no symptoms
Skin: Reports no symptoms
Neurological: Reports headache (Slight, just starting but has not had a headache all week); Denies dizzy
Psychiatric: Reports no symptoms
Phy Exam
General Physical Exam
General Presentation: well appearing and no apparent distress
General age: appears stated age
General Skin: warm and dry
General Habitus: obese
General Mental: alert
General Hydration: appears well hydrated
ENT Exam
ENT Exam: TM's normal, pharynx normal and neck supple
Eye Exam
Eye Exam: EOMI
Cardiovascular Exam
Cardiovascular Exam: regular rate/rhythm, no edema and normal peripheral pulses
Pulmonary Exam
Pulmonary Exam: lungs clear, no respiratory distress, no rales, chest non tender, no crackles, no rhonchi, no wheezing and no cough
Gastrointestinal Exam
Gastrointestinal Exam: normal bowel sounds, non tender, soft, no organomegaly, no pulsatile mass and non distended
Musculoskeletal Exam
Musculoskeletal Exam: full ROM and no edema
Skin Exam
Skin Exam: normal color, warm/dry, no rash and no petechia
Psychiatric Exam
Psychiatric Exam: normal mood/affect
Course
Orders/Labs/Results
Orders:
Orders
06/23/24 17:20
CMP [Comprehensive Metabolic Panel] Urgent
Complete Blood Count/With Diff Urgent
06/23/24 20:01
COVID-19 Antigen Urgent
Source: Nasal Swab
06/23/24 20:54
CR Chest - 2 Views Urgent
Comment:
Reason For Exam: Nausea, fatigue
06/23/24 20:56
Ondansetron Injectable [Zofran] 4 mg IV NOW STA
06/23/24 21:35
Troponin I Urgent
Urinalysis Reflex To Culture Urgent
Date Specimen was Collected: 06/23/24
Time Specimen was Collected: 21:34
Urine Microscopic Reflex Cult Urgent
Urine Culture Urgent
CARLA Source: U
Specimen Description:
Date Specimen was Collected: 06/23/24
Time Specimen was Collected: 21:34
Abnormal Lab Results
06/23/24 06/23/24 06/23/24
17:14 17:20 21:35
Absolute Monos (auto) 1.0 H 10^3/uL
(0.1-0.6)
Monocytes % 9.5 H %
(1.7-9.3)
Potassium 3.3 L mmol/L
(3.5-5.1)
Glucose 132 H mg/dl
(70-99)
Leukocyte Esterase Rfl Trace A
(Negative)
Urine Bacteria (Reflex) Moderate A
(Negative)
POC Glucose 140 H mg/dl
(70-99)
06/23/24 17:20
06/23/24 17:20
Potassium slightly low. hyperglycemia. COVID negative. Urine negative for infection. Troponin <0.012
Vital Signs
Initial and Last Documented VS:
Initial Vital Signs
Temp Pulse Resp BP Pulse Ox
98.6 F 75 18 146/88 98
06/23/24 17:14 06/23/24 17:14 06/23/24 17:14 06/23/24 17:14 06/23/24 17:14
Last Documented Vital Signs
Temp Pulse Resp BP Pulse Ox
98.6 F 70 24 135/53 97
06/23/24 17:14 06/23/24 21:15 06/23/24 21:00 06/23/24 21:00 06/23/24 21:15
MDM/Problems Addressed
Differential Diagnosis Includes:
Depression, Fatigue,
MDM/Problems Addressed:
This is a 54 year old male that comes in with c/o fatigue and nausea. States that this has been going on for the past 1 to 1.5 weeks. States that he is just very tired and nauseated.
Will check labs, Urine, Chest x-ray and COVID.
Back into see patient. Explained that his blood work shows that his Potassium is slightly low. Patient can eat banana's to help elevate this. His chest x-ray is normal and he is negative for COVID with a negative urine. Explained to patient that
this may be a little Depression. Patient to follow up with the family doctor. Patient to return with any concerns.
Chronic conditions affecting care:
Recent CVA
Acute Exacerbation and/or Progression of Chronic Illness:
NA
*Radiology
Radiology exam reviewed: radiology read reviewed (Chest-No acute disease of the chest. )
*Pulse Oximetry
Patient hypoxic: no
*EKG
Interpreted by ED Provider?: NA
Rate: EKG- N/A
*Route Salesman Interpretation
Rate: Route Salesman- N/A
*Critical Care Note
Total Time (30-74mins, 75-104mins- exclusive of procedures): Not Applicable
ED Attending Note
-
Portions of this chart may have been created with voice recognition software.� Occasional wrong word or��sound alike� substitutions may have occurred due to the inherent limitations of voice recognition software.
Discharge Plan
Departure
Patient Disposition: Home (Routine Discharge)
Date of Disposition: 06/23/24
Time of Disposition: 22:49
Patient with high blood pressure during this ER visit?: Yes
Condition: Good
Covid-19: Negative COVID-19
Discharge Problem:
Fatigue
Instructions: Fatigue (DC), BLOOD PRESSURE
Prescriptions:
No Action
atorvastatin 40 mg Tablet
40 mg PO QPM 30 Days Qty: 30 0RF
diltiazem HCl 180 mg Capsule,Extended Release 24hr
360 mg PO DAILY 30 Days Qty: 60 0RF
carvedilol 3.125 mg Tablet
3.125 mg PO BID 30 Days Qty: 60 0RF
docusate sodium 100 mg Capsule
100 mg PO BID 30 Days Qty: 60 0RF
loratadine 10 mg Tablet
10 mg PO DAILY 30 Days Qty: 30 0RF
Eliquis 5 mg Tablet
5 mg PO BID 30 Days Qty: 60 0RF
lidocaine 4 % Adhesive Patch,Medicated
1 patch topical DAILY 30 Days Qty: 30 0RF
valsartan 80 mg Tablet
320 mg PO DAILY 30 Days Qty: 120 0RF
furosemide 80 mg Tablet
80 mg PO DAILY 30 Days Qty: 30 0RF
pantoprazole 40 mg Tablet,Delayed Release (Dr/Ec)
40 mg PO DAILY 30 Days Qty: 30 0RF
hydralazine 50 mg Tablet
100 mg PO TID 30 Days Qty: 180 0RF
Referrals:
Cale Kwong MD [Family Provider] - Follow up in 2-3 days
Activity Restrictions/Additional Instructions:
As discussed, your blood work shows that your potassium is slightly low. Please try eating some banana's. Otherwise your labs are normal. You are negative for COVID, and your chest x-ray is normal. Urine is negative for infection. Please increase
your water intake to 8-8oz glasses daily. Follow up with the family doctor for recheck in the next 2-3 days. IF YOU HAVE ANY OTHER CONCERNS PLEASE RETURN TO THE EMERGENCY ROOM.
Interventions
Interventions:
*Risk Screen - Suicide Last Done: 06/23/24 17:14
*General Assessment Last Done: 06/23/24 17:14
*ED COVID-19 Vaccine History Last Done: 06/23/24 17:14
ED- Cardiac Assessment Last Done: 06/23/24 19:47
ED- Neurological Assessment Last Done: 06/23/24 19:47
ED- Pulmonary Assessment Last Done: 06/23/24 19:47
Discharge Date and Time
Print Language: WELSH
[2024-06-23 21:00] VITALS: BP 135/53
[2024-06-23] MEDS: ZOFRAN 4 MG IV (21:36)
[2024-06-23 21:54] LABS: Urine Albumin Trace (Neg - Trace); Urine Bilirubin Negative (Negative); Urine Character Clear (Clear); Urine Color Yellow; Urine Glucose Negative (Negative); Urine Ketone Negative (Negative); Urine Leukocyte Trace (Negative); Urine Nitrite Negative (Negative); Urine Occult Blood Negative (Negative); Urine Specific Gravity 1.015 (<1.030); Urine Urobilinogen Negative (Neg - 1+)
[2024-06-23 22:14] LABS: Urine Squamous Cell 16-20 /LPF (Few)
[2024-06-23 22:16] LABS: Urine Bacteria Moderate (Negative); Urine Red Blood Cell 0-2 /HPF (0-2)
[2024-06-23 22:28] LABS: Troponin I < 0.012 ng/ml
[2024-06-23 23:14] VITALS: BP 131/63
== END 2024-06-23 23:45 | disposition home or self-care (01) ==
LOC: EMR 17:10
PROVIDERS: Clinical Nurse Specialist Family Health; Emergency Medicine; EMERGENCY PHYSICIAN Emergency Medicine; FAMILY PHYSICIAN Internal Medicine
DX: R53.83 Other fatigue (principal); R51.9 Headache, unspecified; I48.0 Paroxysmal atrial fibrillation; I10 Essential (primary) hypertension; E11.9 Type 2 diabetes mellitus without complications; G47.30 Sleep apnea, unspecified; F17.200 Nicotine dependence, unspecified, uncomplicated; Z82.49 Family history of ischemic heart disease and other diseases of the circulatory system; Z86.73 Personal history of transient ischemic attack (TIA), and cerebral infarction without residual deficits
CPT/HCPCS: 99283; 96374; 71046; 80053; 81003; 81015; 82962; 84484; 85025; 87086; 87811